=== PATIENT | male | born 1935 | race Caucasian/White ===

== ENCOUNTER 2020-11-04 08:04 | Inpatient (IN) | payer BC, MEDICARE ==
[~2020-11-04] VITALS: Ht 177.8 cm; Wt 52.9 kg
--- NOTE | 2020-11-04 08:35 | PHYS DOC ---
General Adult EDM: Chief Complaint: SHORTNESS OF BREATH HPI: HPI: 85-year-old male past medical history significant for COPD presents the ED with his son with complaints of progressive, worsening shortness of breath. Has known COPD and is not on any home oxygen. His knowledge is also in the past 2 years and both biological daughters providing in-home care. No known history of Covid. Patient complains of left anterior " rib pain," worse with deep respirations for the past 2 weeks. Has been sleeping in his recliner and is very weak/frail, does admit to recently falling and hitting his head but no loss of consciousness. EMR was reviewed - echo 2013 w/HFrEF (45-50%). Review of Systems: Review of Systems: Constitutional: Denies fever or chills. [] Eyes: Denies change in visual acuity. [] HENT: Denies nasal congestion or sore throat. [] Respiratory: Denies cough or shortness of breath. [] Cardiovascular: Denies chest pain or edema. [] GI: Denies abdominal pain, nausea, vomiting, bloody stools or diarrhea. [] : Denies dysuria. [] Musculoskeletal: Denies back pain or joint pain. [] Integument: Denies rash. [] Neurologic: Denies headache, focal weakness or sensory changes. [] Endocrine: Denies polyuria or polydipsia. [] Lymphatic: Denies swollen glands. [] Psychiatric: Denies depression or anxiety. [] Heart Score: C/O Chest Pain: No Risk Factors: Risk Factors: DM, Current or recent (<one month) smoker, HTN, HLP, family history of CAD, obesity. Risk Scores: Score 0 - 3: 2.5% MACE over next 6 weeks - Discharge Home Score 4 - 6: 20.3% MACE over next 6 weeks - Admit for Clinical Observation Score 7 - 10: 72.7% MACE over next 6 weeks - Early Invasive Strategies Allergies: Allergies: Allergies Coded Allergies Type Severity Reaction Last Updated Verified No Known Drug Allergies 12/08/13 No Physical Exam: PE: Constitutional: weak/cachectic appearance-looks like a chronic smoker, afebrile HENT: Normocephalic, atraumatic, Eyes: EOMI, conjunctiva normal, no discharge. Neck: Normal range of motion, supple, no meningismus Cardiovascular: S1/2 present, regular rhythm Lungs & Thorax: Speaking in 2-3 word sentences, no tachypnea, 93% on RA, RN placed on NC, skin skinds between his ribs Abdomen: soft, no tenderness, Skin: Warm, dry, no erythema, no rash. [] Back: No tenderness, no CVA tenderness. [] Extremities: No tenderness, no cyanosis, Neurologic: Alert, no focal deficits noted. [] Psychologic: Affect normal, judgement normal, mood normal-smiling/joking with staff EKG: EKG: Sinus tachycardia 107 bpm, no axis deviation, normal intervals, with PACs, no T wave inversions, no ST elevations or ST depressions Radiology/Procedures: Radiology/Procedures: IMAGING REPORT Signed PATIENT: ELIECER ALMARAZ ACCOUNT: [id number] : 1935 LOCATION: ER AGE: 85 SEX: M EXAM STATUS: REG ER ORD. PHYSICIAN: CLAUDETTE LARIOS DO REASON: SOA, R/O PE PROCEDURE: CT ANGIOGRAPHY CHEST Study: CT CHEST WITH CONTRAST - PULMONARY ANGIOGRAM History: Shortness of air. Pulmonary embolism. Comparison: None available. Technique: Helical CT of the chest performed after the administration of 75 cc Omnipaque 350 intravenous contrast and timed for angiographic evaluation of the pulmonary arteries per PE protocol. Coronal and sagittal 3D MIP reformations were obtained. One or more of the following individualized dose reduction techniques were utilized for this examination: 1. Automated exposure control 2. Adjustment of the mA and/or kV according to patient size 3. Use of iterative reconstruction technique. Findings: Pulmonary Arteries: No main, lobar or segmental pulmonary embolism. Heart/Systemic Vasculature: Multifocal calcific atherosclerosis. No aortic aneurysm or dissection. Mild appearing stenosis at the proximal right renal artery. The visualized great vessels are patent. No interventricular septal deviation to suggest active heart strain. Mediastinum: Several granulomas. No definitive mediastinal or hilar lymph node meeting pathologic criteria based on size measuring under a centimeter short axis. Lungs: Severe emphysema. Opacities at both lung apices in part related to scarring noting that no comparison studies are available to determine stability. No well-circumscribed nodule in the right or left upper lobes, right middle lobe or lingula. Nodular opacity in the posterior right lower lobe with irregular margins is difficult to measure given its lobulated nature but the area of opacification measures approximately 1.9 x 1.7 x 2.0 cm. Small nodular focus medially within the right lower lobe, image 123 series 3 measures 0.3 cm. Multiple nodular opacities in the left lower lobe in addition to ill-defined groundglass and consolidative infiltrates mainly at the subpleural aspect. A nodule in the left lower lobe on image 89 measures 0.9 cm. Left lower lobe nodule on image 109 measures 0.4 cm. Nodular opacity on image 121 measures 2.3 cm transverse and blends in with the subpleural opacification more inferiorly. Mild infiltrates or scarring at the base of the lingula. No pleural effusion. No central airway occlusion but there is debris within the left mainstem bronchus, image 73 series 3. Neck/Axilla/Body Wall: No discrete thyroid nodule. No axillary adenopathy. Cachectic body habitus. Upper Abdomen: A few bilateral renal cystic foci. The spleen is within normal limits for size. Masslike density at the left upper quadrant with a central focus of mineralization, image 169 series 3, may be associated with the left adrenal gland. Portion of this is difficult to differentiate from the posterior wall/undersurface of the gastric fundus. On image 168 series 3 this region measured approximately 4 x 2.5 cm but is very poorly characterized the right adrenal gland is not well seen. Gallstone or stones on image 188 series 3 measuring up to 1.1 cm transverse. Bones: Severe compression deformity at L2 with height loss mainly centrally. Minimal dorsal cortical buckling. Heterogeneous sclerosis of this vertebral body. There is no prevertebral inflammation to suggest that this is acute. Multifocal degenerative changes. Miscellaneous: None. IMPRESSION: 1. No main, lobar or segmental pulmonary embolism. 2. Groundglass and ill-defined airspace opacities at the left lower lobe predominantly subpleural in location. There are several nodular opacities on the left as well. Lobulated nodule in the right lower lobe measuring 1.9 x 1.7 x 2.0 cm. Pneumonia and/or aspiration is suspected at the left lower lobe given the presence of debris within the left mainstem bronchus. Malignancy needs to be excluded particularly for the right lower lobe finding and given severe background emphysema. PET/CT could be performed, tissue sampling of the right lower lobe nodule or follow-up in no more than a month. 3. Severe compression deformity at L2 with heterogeneous sclerosis of this vertebral body. There are no findings to suggest that this is acute. A pathologic compression fracture is not excluded noting that no aggressive osseous lesion is seen elsewhere. Obtainment of any outside imaging studies would be useful to confirm stability. 4. Additional chronic observations detailed in the body the report. Electronically signed by: LINA PANDYA MD (11/04/2020 11:47 AM) [facility] DICTATED and SIGNED BY: LINA PANDYA MD DATE: 11/04/20 [id number] IMAGING REPORT Signed PATIENT: ELIECER ALMARAZ ACCOUNT: [id number] : 1935 LOCATION: ER AGE: 85 SEX: M EXAM STATUS: REG ER ORD. PHYSICIAN: CLAUDETTE LARIOS DO REASON: multiple falls PROCEDURE: CT HEAD AND CERVICAL SPINE WO STUDY: CT head and cervical spine without contrast INDICATION: Falls. COMPARISON: None. TECHNIQUE: Axial CT imaging through the head and cervical spine without the use of intravenous contrast. Sagittal and coronal reformats were obtained. One or more of the following individualized dose reduction techniques were uti lized for this examination: 1. Automated exposure control 2. Adjustment of the mA and/or kV according to patient size 3. Use of iterative reconstruction technique. FINDINGS: CT head: No acute intracranial hemorrhage. No midline shift. Marie-white matter differentiation is maintained. Parenchymal volume loss with ex vacuo ventriculomegaly. White matter findings most frequently on account of chronic microvascular ischemic change. Intracranial calcific atherosclerosis. No depressed calvarial fracture. No hemorrhage within the paranasal sinuses. Normally aerated mastoid air cells. CT cervical spine: Taking into consideration osteopenia, no acute fracture. No traumatic malalignment. Multilevel, multifactorial spondylosis with central canal narrowing estimated at up to moderate and greatest at C3-C4. Increased density along the dorsal epidural space at C2-C3 and C3-C4 favored on account of ligamentum flavum hypertrophy. Multilevel neural foraminal narrowing which is severe at a few levels. No prevertebral or dorsal paraspinous hematoma. No thyroid nodule. Scattered venous gas to be iatrogenic from venipuncture. Lung findings detailed separately. IMPRESSION: CT head: 1. No acute intracranial abnormality by CT. 2. Chronic/senescent observations outlined in the body the report. CT cervical spine: 1. Taking into consideration osteopenia no acute fracture seen throughout the cervical spine. No traumatic malalignment. 2. 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 The central canal is not fully characterized but narrowing is estimated at up to moderate and favored greatest at C3-C4. Electronically signed by: LINA PANDYA MD (11/04/2020 11:25 AM) [facility] DICTATED and SIGNED BY: LINA PANDYA MD DATE: 11/04/20 [id number] IMAGING REPORT Signed PATIENT: ELIECER ALMARAZ ACCOUNT: [id number] : 1935 LOCATION: ER AGE: 85 SEX: M EXAM STATUS: REG ER ORD. PHYSICIAN: CLAUDETTE LARIOS DO REASON: soa PROCEDURE: PORTABLE CHEST 1V XR CHEST 1V INDICATION: soa COMPARISON STUDY: None. FINDINGS: Lungs: Hyperexpanded lung volume. Patchy bilateral opacities. Biapical subpleural fibrosis. Pleura: No pleural effusion or pneumothorax. Heart and Mediastinum: The cardiomediastinal silhouette is normal. Atherosclerosis of the thoracic aorta. IMPRESSION: Patchy bilateral opacities, which could represent edema or multifocal infection. Small left pleural effusion. Electronically signed by: Norm Small MD (11/04/2020 9:02 AM) [id number] DICTATED and SIGNED BY: NORM SMALL MD DATE: 11/04/20 [id number] 0 Course & Med Decision Making: Course & Med Decision Making Pertinent Labs and Imaging studies reviewed. (See chart for details) COVID-19 CRITERIA: The patient was evaluated during the global COVID-19 pandemic, and that diagnosis was suspected/considered upon their initial presentation. Their evaluation, treatment and testing was consistent with current guidelines for patients who present with complaints or symptoms that may be related to COVID-19. Presents to the ED with complaints of shortness of breath in an elderly male, requiring NC/oxygen, meets sepsis criteria with concerns for multifocal pneumonia, groundglass opacities (covid pending), cannot exclude malignancy vs CHF. Will admit for further medical management. Patient stable to admission an d agrees with this plan. I have spoken with the patient and/or caregivers. I have explained the patient's condition, diagnosis and treatment plan based on the information available to me at this time. I have answered the patient's and/or caregivers questions and answered any concerns. The patient and/or caregivers have as good an understanding of the patient's diagnosis, condition and treatment plan as can be expected at this point. The patient has been stabilized within the capability of the emergency department. The patient will be transported for further care and management or will be moved to an observation or inpatient [facility]. I have communicated with the staff or medical practitioner taking over this patient's care. Chris Disclaimer: Chris Disclaimer: This electronic medical record was generated, in whole or in part, using a voice recognition dictation system. Departure Departure Impression: Primary Impression: Sepsis Additional Impressions: Multifocal pneumonia Person under investigation for COVID-19 Acute dyspnea Disposition: ADMITTED INPATIENT Admitting Physician: LUIS (Dr. Lomeli) Condition: GUARDED Referrals: ALEXANDRE NGO MD (PCP) CLAUDETTE LARIOS DO November 04, 2020 08:35
[2020-11-04] MEDS ORDERED: IV NORMAL SALINE 1000ML BAG 1,000 ML IV ONE (08:45)
[2020-11-04 08:53] LABS: BASO % 0 % (0-3); EOS % 0 % (0-3); HEMATOCRIT 45.4 % (39.0-53.0); HEMOGLOBIN 15.2 g/dL (13.0-17.5); LYMPH # 0.6 x10^3/uL (1.0-4.8); LYMPH % 3 % (24-48); MEAN CORPUSCULAR HEMOGLOBIN 31 pg (25-35); MEAN CORPUSCULAR HGB CONC 33 g/dL (31-37); MEAN CORPUSCULAR VOLUME 94 fL (79-100); MONO # 1.1 x10^3/uL (0.0-1.1); MONO % 6 % (0-9); NEUT # 16.9 x10^3/uL (1.8-7.7); NEUT % 91 % (31-73); PLATELET COUNT 229 x10^3/uL (140-400); RED BLOOD COUNT 4.84 x10^6/uL (4.30-5.70); RED CELL DISTRIBUTION WIDTH 15.2 % (11.5-14.5); WHITE BLOOD COUNT 18.6 x10^3/uL (4.0-11.0)
--- NOTE | 2020-11-04 09:05 | RAD ---
XR CHEST 1V INDICATION: soa COMPARISON STUDY: None. FINDINGS: Lungs: Hyperexpanded lung volume. Patchy bilateral opacities. Biapical subpleural fibrosis. Pleura: No pleural effusion or pneumothorax. Heart and Mediastinum: The cardiomediastinal silhouette is normal. Atherosclerosis of the thoracic ao rta. IMPRESSION: Patchy bilateral opacities, which could represent edema or multifocal infection. Small left pleural effusion. Electronically signed by: Bill Small MD (11/04/2020 9:02 AM) [id number]
[2020-11-04 09:09] LABS: CALCIUM 9.4 mg/dL (8.5-10.1); CREATININE 1.2 mg/dL (0.7-1.3); GFR 57.5; POTASSIUM 4.4 mmol/L (3.5-5.1)
[2020-11-04 09:21] LABS: ALBUMIN 3.3 g/dL (3.4-5.0); DIRECT BILIRUBIN 0.4 mg/dL (0.0-0.2); TOTAL BILIRUBIN 1.8 mg/dL (0.2-1.0); TOTAL PROTEIN 7.2 g/dL (6.4-8.2)
[2020-11-04] MEDS ORDERED: PIP/TAZO PER PHARMACY MC PRN (09:30)
[2020-11-04] MEDS ORDERED: PIPERACILLIN/TAZOBACTAM 3.375 GM in IV NORMAL SALINE 50ML 50 ML IV ONE (10:00)
[2020-11-04] MEDS ORDERED: VANCOMYCIN 1.5 GM in IV NORMAL SALINE 500ML BAG 500 ML IV ONE (10:00)
--- NOTE | 2020-11-04 10:07 | EKG ---
[facility] [address] [place] [address] Test Date: 2020-11-04 Test Time: 08:29:55 Pat Name: ELIECER ALMARAZ Department: Room: Gender: M Manager Of Manufacturing: : 1935 Requested By: CLAUDETTE LARIOS Order Number: [id number] Reading MD: Mahendra Mendoza Measurements Intervals [place] Rate: 107 P: 73 AK: 116 QRS: 33 QRSD: 100 T: 51 QT: 314 QTc: 424 Interpretive Statements SINUS TACHYCARDIA ATRIAL PREMATURE COMPLEX(ES) LOW LIMB LEAD VOLTAGE Electronically Signed On 11-06-2020 15:26:25 CDT by Mahendra Mendoza
[2020-11-04] MEDS ORDERED: CONTRAST GIVEN. MC PRN (10:45)
[2020-11-04] MEDS ORDERED: IOHEXOL 350 MG/ML 100 ML VIAL. IV ONE (10:45)
[2020-11-04 11:09] LABS: % BANDS 2 % (0-9); % BASOS 1 % (0-3); % LYMPHS 5 % (24-48); % MONOS 3 % (0-10); % SEGS 89 % (35-66)
[2020-11-04 11:10] LABS: PLT ESTIMATE ADEQUATE (ADEQUATE)
--- NOTE | 2020-11-04 11:27 | RAD ---
STUDY: CT head and cervical spine without contrast INDICATION: Falls. COMPARISON: None. TECHNIQUE: Axial CT imaging through the head and cervical spine without the use of intravenous contra st. Sagittal and coronal reformats were obtained. One or more of the following individualized dose reduction techniques were utilized for this examinat ion: 1. Automated exposure control 2. Adjustment of the mA and/or kV according to patient size 3. Use of iterative reconstruction technique. FINDINGS: CT head: No acute intracranial hemorrhage. No midline shift. Marie-white matter differentiation is maintained. Parenchymal volume loss with ex vacuo ventriculomegaly. White matter findings most frequently on acco unt of chronic microvascular ischemic change. Intracranial calcific atherosclerosis. No depressed calvarial fracture. No hemorrhage within the paranasal sinuses. Normally aerated mastoid air cells. CT cervical spine: Taking into consideration osteopenia, no acute fracture. No traumatic malalignment. Multilevel, multifactorial spondylosis with central canal narrowing estimated at up to moderate and g reatest at C3-C4. Increased density along the dorsal epidural space at C2-C3 and C3-C4 favored on acc ount of ligamentum flavum hypertrophy. Multilevel neural foraminal narrowing which is severe at a few levels. No prevertebral or dorsal paraspinous hematoma. No thyroid nodule. Scattered venous gas to be iatroge jordan from venipuncture. Lung findings detailed separately. IMPRESSION: CT head: 1. No acute intracranial abnormality by CT. 2. Chronic/senescent observations outlined in the body the report. CT cervical spine: 1. Taking into consideration osteopenia no acute fracture seen throughout the cervical spine. No tra umatic malalignment. 2. 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 The central canal is not fully characterized but narrowing is estimated at up to moderate and favored greatest at C3-C4. Electronically signed by: LINA PANDYA MD (11/04/2020 11:25 AM) [facility]
--- NOTE | 2020-11-04 11:49 | RAD ---
Study: CT CHEST WITH CONTRAST - PULMONARY ANGIOGRAM History: Shortness of air. Pulmonary embolism. Comparison: None available. Technique: Helical CT of the chest performed after the administration of 75 cc Omnipaque 350 intrave nous contrast and timed for angiographic evaluation of the pulmonary arteries per PE protocol. Pérez l and sagittal 3D MIP reformations were obtained. One or more of the following individualized dose reduction techniques were utilized for this examinat ion: 1. Automated exposure control 2. Adjustment of the mA and/or kV according to patient size 3. Use of iterative reconstruction technique. Findings: Pulmonary Arteries: No main, lobar or segmental pulmonary embolism. Heart/Systemic Vasculature: Multifocal calcific atherosclerosis. No aortic aneurysm or dissection. Mi ld appearing stenosis at the proximal right renal artery. The visualized great vessels are patent. No interventricular septal deviation to suggest active heart strain. Mediastinum: Several granulomas. No definitive mediastinal or hilar lymph node meeting pathologic cri teria based on size measuring under a centimeter short axis. Lungs: Severe emphysema. Opacities at both lung apices in part related to scarring noting that no com parison studies are available to determine stability. No well-circumscribed nodule in the right or le ft upper lobes, right middle lobe or lingula. Nodular opacity in the posterior right lower lobe with irregular margins is difficult to measure given its lobulated nature but the area of opacification me asures approximately 1.9 x 1.7 x 2.0 cm. Small nodular focus medially within the right lower lobe, im age 123 series 3 measures 0.3 cm. Multiple nodular opacities in the left lower lobe in addition to il l-defined groundglass and consolidative infiltrates mainly at the subpleural aspect. A nodule in the left lower lobe on image 89 measures 0.9 cm. Left lower lobe nodule on image 109 measures 0.4 cm. Nod ular opacity on image 121 measures 2.3 cm transverse and blends in with the subpleural opacification more inferiorly. Mild infiltrates or scarring at the base of the lingula. No pleural effusion. No asha tral airway occlusion but there is debris within the left mainstem bronchus, image 73 series 3. Neck/Axilla/Body Wall: No discrete thyroid nodule. No axillary adenopathy. Cachectic body habitus. Upper Abdomen: A few bilateral renal cystic foci. The spleen is within normal limits for size. [place] ke density at the left upper quadrant with a central focus of mineralization, image 169 series 3, may be associated with the left adrenal gland. Portion of this is difficult to differentiate from the po sterior wall/undersurface of the gastric fundus. On image 168 series 3 this region measured approxima tely 4 x 2.5 cm but is very poorly characterized the right adrenal gland is not well seen. Gallstone or stones on image 188 series 3 measuring up to 1.1 cm transverse. Bones: Severe compression deformity at L2 with height loss mainly centrally. Minimal dorsal cortical buckling. Heterogeneous sclerosis of this vertebral body. There is no prevertebral inflammation to fuentes ggest that this is acute. Multifocal degenerative changes. Miscellaneous: None. IMPRESSION: 1. No main, lobar or segmental pulmonary embolism. 2. Groundglass and ill-defined airspace opacities at the left lower lobe predominantly subpleural in location. There are several nodular opacities on the left as well. Lobulated nodule in the right low er lobe measuring 1.9 x 1.7 x 2.0 cm. Pneumonia and/or aspiration is suspected at the left lower lobe given the presence of debris within the left mainstem bronchus. Malignancy needs to be excluded part icularly for the right lower lobe finding and given severe background emphysema. PET/CT could be perf ormed, tissue sampling of the right lower lobe nodule or follow-up in no more than a month. 3. Severe compression deformity at L2 with heterogeneous sclerosis of this vertebral body. There are no findings to suggest that this is acute. A pathologic compression fracture is not excluded noting that no aggressive osseous lesion is seen elsewhere. Obtainment of any outside imaging studies would be useful to confirm stability. 4. Additional chronic observations detailed in the body the report. Electronically signed by: LINA PANDYA MD (11/04/2020 11:47 AM) [facility]
--- NOTE | 2020-11-04 12:10 | PDOC1 ---
History and Physical Date of Admission Date of Admission DATE: 11/04/20 TIME: 12:05 Identification/Chief Complaint Chief Complaint Shortness of breath Source Source: Patient History of Present Illness History of Present Illness Mr Stone is an 85yo M w/ no significant medical history, but smoker for 77 years who comes from home who is mostly homebound complain of worsening shortness of breath. He has been having some back pain recently and taking pain medications. He only interacts with his children who are all vaccinated against COVID 19, though he is not. He did fall 2 months ago, then again 2 days ago, has been having right rib pain as well as lower back pain. On examination dyspneic respiratory rate greater than 20-minute and O2 saturatio ns initially noted to 84% on room air improved with 2 L nasal cannula oxygen to 91%. EKG sinus tachycardia rate of 107 beats a minute incomplete right bundle branch block no T wave abnormalities or ST segment abnormalities. Chest radiograph hyperexpanded lungs bilateral patchy opacities. CTPA with concerning right-sided lower lobe nodule and bilateral groundglass opacities as well as debris in left mainstem bronchus and L2 compression deformity. Head neck CT with no acute abnormality. During my examination rapid NAAT returned positive for COVID 19. Admitted for further care Past Medical History Musculoskeletal: low back pain Past Surgical History Past Surgical History: Tonsillectomy Family History Family History Reviewed Family History: Family History Unknown Social History Smoke: 1 pack per day ALCOHOL: none Drugs: None Current Problem List Problem List Problems Medical Problems: (1) Acute dyspnea Status: Acute (2) Multifocal pneumonia Status: Acute (3) Person under investigation for COVID-19 Status: Acute (4) Sepsis Status: Acute Current Medications Current Medications Current Medications Sodium Chloride 1,000 ml @ 1,000 mls/hr 1X ONCE IV Last administered on 11/04/20at 09:06; Start 11/04/20 at 08:45; Stop 11/04/20 at 09:44; Status DC Piperacillin Sod/ Tazobactam Sod (Zosyn Per Pharmacy) 1 each PRN DAILY PRN [facility] SEE COMMENTS; Start 11/04/20 at 09:30; Status UNV Vancomycin HCl (Vanco Per Pharmacy) 1 each PRN DAILY PRN MC SEE COMMENTS; Start 11/04/20 at 09:30; Status UNV Vancomycin HCl 1.5 gm/Sodium Chloride 500 ml @ 250 mls/hr 1X ONCE IV Last administered on 11/04/20at 10:05; Start 11/04/20 at 10:00; Stop 11/04/20 at 11:59; Status DC Piperacillin Sod/ Tazobactam Sod 3.375 gm/Sodium Chloride 50 ml @ 100 mls/hr 1X ONCE IV Last administered on 11/04/20at 10:04; Start 11/04/20 at 10:00; Stop 11/04/20 at 10:29; Status DC Iohexol (Omnipaque 350 Mg/ml) 75 ml 1X ONCE IV Last administered on 11/04/20at 11:07; Start 11/04/20 at 10:45; Stop 11/04/20 at 10:46; Status DC Info (CONTRAST GIVEN -- Rx MONITORING) 1 each PRN DAILY PRN MC SEE COMMENTS; Start 11/04/20 at 10:45; Stop 11/06/20 at 10:44 Allergies Allergies: Coded Allergies: No Known Drug Allergies (Unverified , 12/08/13) ROS General: YES: Fatigue, Malaise, Appetite; No: Chills, Night Sweats, Other PSYCHOLOGICAL ROS: No: Anxiety, Behavioral Disorder, Concentration difficultie, Decreased libido, Depression, Disorientation, Hallucinations, Hostility, Irritablity, Memory difficulties, Mood Swings, Obsessive thoughts, Physical abuse, Sexual abuse, Sleep disturbances, Suicidal ideation, Other Eyes: No Blurry vision, No Decreased vision, No Double vision, No Dry eyes, No Excessive tearing, No Eye Pain, No Itchy Eyes, No Loss of vision, No Photophobia, No Scotomata, No Uses contacts, No Uses glasses, No Other HEENT: No: Heacaches, Visual Changes, Hearing change, Nasal congestion, Nasal discharge, Oral lesions, Sinus pain, Sore Throat, Epistaxis, Sneezing, Snoring, Tinnitus, Vertigo, Vocal changes, Other ALLERGY AND IMMUNOLOGY: No: Hives, Insect Bite Sensitivity, Itchy/Watery Eyes, Nasal Congestion, Post Nasal Drip, Seasonal Allergies, Other Hematological and Lymphatic: No: Bleeding Problems, Blood Clots, Blood Branch sfusions, Brusing, Night Sweats, Pallor, Swollen Lymph Nodes, Other ENDOCRINE: No: Breast Changes, Galactorrhea, Hair Pattern Changes, Hot Flashes, Malaise/lethargy, Mood Swings, Palpitations, Polydipsia/polyuria, Skin Changes, Temperature Intolerance, Unexpected Weight Changes, Other Breast: No New/Changing Breast Lumps, No Nipple changes, No Nipple discharge, No Other Respiratory: YES: Cough, Shortness of breath, SOB with excertion, Tachypnea; No: Hemoptysis, Orthopnea, Pleuritic Pain, Sputum Changes, Stridor, Wheezing, Other Cardiovascular: No Chest Pain, No Palpitations, No Orthopnea, No Paroxysmal Noc. Dyspnea, No Edema, No Lt Headedness, No Other Gastrointestinal: No Nausea, No Vomiting, No Abdominal Pain, No Diarrhea, No Constipation, No Melena, No Hematochezia, No Other Genitourinary: No Dysuria, No Frequency, No Incontinence, No Hematuria, No Retention, No Discharge, No Urgency, No Pain, No Flank Pain, No Other, No , No , No , No , No , No , No Musculoskeletal: No Gait Disturbance, No Joint Pain, No Joint Stiffness, No Joint Swelling, No Muscle Pain, No Muscular Weakness, No Pain In:, No Swelling In:, No Other Neurological: No Behavorial Changes, No Bowel/Bladder ControlChng, No Confusion, No Dizziness, No Gait Disturbance, No Headaches, No Impaired Coord/balance, No Memory Loss, No Numbness/Tingling, No Seizures, No Speech Problems, No Tremors, No Visual Changes, No Weakness, No Other Skin: No Dry Skin, No Eczema, No Hair Changes, No Lumps, No Mole Changes, No Mottling, No Nail Changes, No Pruritus, No Rash, No Skin Lesion Changes, No Other, No Acne Physical Exam General: Alert, Oriented X3, Cooperative, mild distress, Other (Cachectic appearing) HEENT: Atraumatic, PERRLA, EOMI, Mucous membr. moist/pink Lungs: Other (Bilateral rhonchi and crackles) Heart: S1S2, RRR, no thrills, no rubs, no gallops, no murmurs Abdomen: Normal bowel sounds, Soft, No tenderness, No hepatosplenomegaly, No masses Rectal Exam: not examined Extremities: No clubbing, No cyanosis, No edema, Normal pulses, No tenderness/swelling Skin: No rashes, No breakdown, No significant lesion Neuro: Normal gait, Normal speech, Strength at 5/5 X4 ext, Normal tone, Sensation intact, Cranial nerves 3-12 NL, Reflexes 2+ Psych/Mental Status: Mental status NL, Mood NL Vitals Vitals Vital Signs Date Time Temp Pulse Resp B/P (MAP) Pulse Ox O2 Delivery O2 Flow Rate FiO2 11/04/20 10:14 98.7 106 14 123/59 (80) 95 Nasal Cannula 2.0 98.7 Labs Labs Laboratory Tests Test 11/04/20 08:35 11/04/20 09:58 White Blood Count 18.6 x10^3/uL (4.0-11.0) Red Blood Count 4.84 x10^6/uL (4.30-5.70) Hemoglobin 15.2 g/dL (13.0-17.5) Hematocrit 45.4 % (39.0-53.0) Mean Corpuscular Volume 94 fL (79-100) Mean Corpuscular Hemoglobin 31 pg (25-35) Mean Corpuscular Hemoglobin Concent 33 g/dL (31-37) Red Cell Distribution Width 15.2 % (11.5-14.5) Platelet Count 229 x10^3/uL (140-400) Neutrophils (%) (Auto) 91 % (31-73) Lymphocytes (%) (Auto) 3 % (24-48) Monocytes (%) (Auto) 6 % (0-9) Eosinophils (%) (Auto) 0 % (0-3) Basophils (%) (Auto) 0 % (0-3) Neutrophils # (Auto) 16.9 x10^3/uL (1.8-7.7) Lymphocytes # (Auto) 0.6 x10^3/uL (1.0-4.8) Monocytes # (Auto) 1.1 x10^3/uL (0.0-1.1) Eosinophils # (Auto) 0.0 x10^3/uL (0.0-0.7) Basophils # (Auto) 0.0 x10^3/uL (0.0-0.2) Segmented Neutrophils % 89 % (35-66) Band Neutrophils % 2 % (0-9) Lymphocytes % 5 % (24-48) Monocytes % 3 % (0-10) Basophils % 1 % (0-3) Platelet Estimate Adequate (ADEQUATE) Large Platelets Few Sodium Level 142 mmol/L (136-145) Potassium Level 4.4 mmol/L (3.5-5.1) Chloride Level 102 mmol/L (98-107) Carbon Dioxide Level 34 mmol/L (21-32) Anion Gap 6 (6-14) Blood Urea Nitrogen 48 mg/dL (8-26) Creatinine 1.2 mg/dL (0.7-1.3) Estimated GFR (Cockcroft-Gault) 57.5 Glucose Level 93 mg/dL (70-99) Lactic Acid Level 1.3 mmol/L (0.4-2.0) Calcium Level 9.4 mg/dL (8.5-10.1) Total Bilirubin 1.8 mg/dL (0.2-1.0) Direct Bilirubin 0.4 mg/dL (0.0-0.2) Aspartate Amino Transf (AST/SGOT) 15 U/L (15-37) Alanine Aminotransferase (ALT/SGPT) 20 U/L (16-63) Alkaline Phosphatase 82 U/L (46-116) Creatine Kinase 65 U/L (39-308) Troponin I Quantitative < 0.017 ng/mL (0.000-0.055) HT-Iau-K-Type Natriuretic Peptide 467 pg/mL (0-449) Total Protein 7.2 g/dL (6.4-8.2) Albumin 3.3 g/dL (3.4-5.0) SARS-CoV-2 Antigen (Rapid) Negative (NEGATIVE) Laboratory Tests Test 11/04/20 08:35 11/04/20 09:58 White Blood Count 18.6 x10^3/uL (4.0-11.0) Red Blood Count 4.84 x10^6/uL (4.30-5.70) Hemoglobin 15.2 g/dL (13.0-17.5) Hematocrit 45.4 % (39.0-53.0) Mean Corpuscular Volume 94 fL (79-100) Mean Corpuscular Hemoglobin 31 pg (25-35) Mean Corpuscular Hemoglobin Concent 33 g/dL (31-37) Red Cell Distribution Width 15.2 % (11.5-14.5) Platelet Count 229 x10^3/uL (140-400) Neutrophils (%) (Auto) 91 % (31-73) Lymphocytes (%) (Auto) 3 % (24-48) Monocytes (%) (Auto) 6 % (0-9) Eosinophils (%) (Auto) 0 % (0-3) Basophils (%) (Auto) 0 % (0-3) Neutrophils # (Auto) 16.9 x10^3/uL (1.8-7.7) Lymphocytes # (Auto) 0.6 x10^3/uL (1.0-4.8) Monocytes # (Auto) 1.1 x10^3/uL (0.0-1.1) Eosinophils # (Auto) 0.0 x10^3/uL (0.0-0.7) Basophils # (Auto) 0.0 x10^3/uL (0.0-0.2) Segmented Neutrophils % 89 % (35-66) Band Neutrophils % 2 % (0-9) Lymphocytes % 5 % (24-48) Monocytes % 3 % (0-10) Basophils % 1 % (0-3) Platelet Estimate Adequate (ADEQUATE) Large Platelets Few Sodium Level 142 mmol/L (136-145) Potassium Level 4.4 mmol/L (3.5-5.1) Chloride Level 102 mmol/L (98-107) Carbon Dioxide Level 34 mmol/L (21-32) Anion Gap 6 (6-14) Blood Urea Nitrogen 48 mg/dL (8-26) Creatinine 1.2 mg/dL (0.7-1.3) Estimated GFR (Cockcroft-Gault) 57.5 Glucose Level 93 mg/dL (70-99) Lactic Acid Level 1.3 mmol/L (0.4-2.0) Calcium Level 9.4 mg/dL (8.5-10.1) Total Bilirubin 1.8 mg/dL (0.2-1.0) Direct Bilirubin 0.4 mg/dL (0.0-0.2) Aspartate Amino Transf (AST/SGOT) 15 U/L (15-37) Alanine Aminotransferase (ALT/SGPT) 20 U/L (16-63) Alkaline Phosphatase 82 U/L (46-116) Creatine Kinase 65 U/L (39-308) Troponin I Quantitative < 0.017 ng/mL (0.000-0.055) HE-Jcl-U-Type Natriuretic Peptide 467 pg/mL (0-449) Total Protein 7.2 g/dL (6.4-8.2) Albumin 3.3 g/dL (3.4-5.0) SARS-CoV-2 Antigen (Rapid) Negative (NEGATIVE) Images Images Chest radiograph: Lungs: Hyperexpanded lung volume. Patchy bilateral opacities. Biapical subpleural fibrosis. Pleura: No pleural effusion or pneumothorax. Heart and Mediastinum: The cardiomediastinal silhouette is normal. Atherosclerosis of the thoracic aorta. IMPRESSION: Patchy bilateral opacities, which could represent edema or multifocal infection. Small left pleural effusion. CTPA: Pulmonary Arteries: No main, lobar or segmental pulmonary embolism. Heart/Systemic Vasculature: Multifocal calcific atherosclerosis. No aortic aneurysm or dissection. Mild appearing stenosis at the proximal right renal artery. The visualized great vessels are patent. No interventricular septal d eviation to suggest active heart strain. Mediastinum: Several granulomas. No definitive mediastinal or hilar lymph node meeting pathologic criteria based on size measuring under a centimeter short axis. Lungs: Severe emphysema. Opacities at both lung apices in part related to scarring noting that no comparison studies are available to determine stability. No well-circumscribed nodule in the right or left upper lobes, right middle lobe or lingula. Nodular opacity in the posterior right lower lobe with irregular margins is difficult to measure given its lobulated nature but the area of opacification measures approximately 1.9 x 1.7 x 2.0 cm. Small nodular focus medially within the right lower lobe, image 123 series 3 measures 0.3 cm. Multiple nodular opacities in the left lower lobe in addition to ill-defined groundglass and consolidative infiltrates mainly at the subpleural aspect. A nodule in the left lower lobe on image 89 measures 0.9 cm. Left lower lobe nodule on image 109 measures 0.4 cm. Nodular opacity on image 121 measures 2.3 cm transverse and blends in with the subpleural opacification more inferiorly. Mild infiltrates or scarring at the base of the lingula. No pleural effusion. No central airway occlusion but there is debris within the left mainstem bronchus, image 73 series 3. Neck/Axilla/Body Wall: No discrete thyroid nodule. No axillary adenopathy. Cachectic body habitus. Upper Abdomen: A few bilateral renal cystic foci. The spleen is within normal limits for size. Masslike density at the left upper quadrant with a central focus of mineralization, image 169 series 3, may be associated with the left adrenal gland. Portion of this is difficult to differentiate from the posterior wall/undersurface of the gastric fundus. On image 168 series 3 this region measured approximately 4 x 2.5 cm but is very poorly characterized the right adrenal gland is not well seen. Gallstone or stones on image 188 series 3 measuring up to 1.1 cm transverse. Bones: Severe compression deformity at L2 with height loss mainly centrally. Minimal dorsal cortical buckling. Heterogeneous sclerosis of this vertebral body. There is no prevertebral inflammation to suggest that this is acute. Multifocal degenerative changes. Miscellaneous: None. IMPRESSION: 1. No main, lobar or segmental pulmonary embolism. 2. Groundglass and ill-defined airspace opacities at the left lower lobe predominantly subpleural in location. There are several nodular opacities on the left as well. Lobulated nodule in the right lower lobe measuring 1.9 x 1.7 x 2.0 cm. Pneumonia and/or aspiration is suspected at the left lower lobe given the presence of debris within the left mainstem bronchus. Malignancy needs to be excluded particularly for the right lower lobe finding and given severe background emphysema. PET/CT could be performed, tissue sampling of the right lower lobe nodule or follow-up in no more than a month. 3. Severe compression deformity at L2 with heterogeneous sclerosis of this vertebral body. There are no findings to suggest that this is acute. A pathologic compression fracture is not excluded noting that no aggressive osseous lesion is seen elsewhere. Obtainment of any outside imaging studies would be useful to confirm stability. 4. Additional chronic observations detailed in the body the report. CT head/C-spine: CT head: No acute intracranial hemorrhage. No midline shift. Marie-white matter different iation is maintained. Parenchymal volume loss with ex vacuo ventriculomegaly. White matter findings most frequently on account of chronic microvascular ischemic change. Intracranial calcific atherosclerosis. No depressed calvarial fracture. No hemorrhage within the paranasal sinuses. Normally aerated mastoid air cells. CT cervical spine: Taking into consideration osteopenia, no acute fracture. No traumatic malalignment. Multilevel, multifactorial spondylosis with central canal narrowing estimated at up to moderate and greatest at C3-C4. Increased density along the dorsal epidural space at C2-C3 and C3-C4 favored on account of ligamentum flavum hypertrophy. Multilevel neural foraminal narrowing which is severe at a few levels. No prevertebral or dorsal paraspinous hematoma. No thyroid nodule. Scattered venous gas to be iatrogenic from venipuncture. Lung findings detailed separately. IMPRESSION: CT head: 1. No acute intracranial abnormality by CT. 2. Chronic/senescent observations outlined in the body the report. CT cervical spine: 1. Taking into consideration osteopenia no acute fracture seen throughout the cervical spine. No traumatic malalignment. 2. 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 The central canal is not fully characterized but narrowing is estimated at up to moderate and favored greatest at C3-C4. VTE Prophylaxis Ordered VTE Prophylaxis Devices: No VTE Pharmacological Prophylaxi: Yes Assessment/Plan Assessment/Plan A/P: Acute respiratory failure with hypoxia - due to COVID 19 pneumonia and bilateral pneumonia with pulmonary mass. Sepsis - IVF + antibiotics, though this is COVID 19 related. Back painL2 compression fracture - seems to be chronic, but with recent falls this could be wrong. Will place lidoderm patch, prn tramadol, morphine. Fell 2 days ago and a few months ago. 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 Will consult pulm, will definitely need f/u outpatient Smoker - counseled on cessation FEN - General diet PPX - lovenox CODE - DNR/DNI Dispo - Inpatient for COVID 19 treatment Justifications for Admission Other Justification KIMBERLY RUELAS MD November 04, 2020 12:10
[2020-11-04] MEDS ORDERED: guaiFENesin DM 200MG/20MG 10 ML SYRUP PO PRN (13:30)
[2020-11-04] MEDS ORDERED: ONDANSETRON PF 4 MG/2 ML VIAL. IVP PRN (13:30)
[2020-11-04] MEDS ORDERED: ACETAMINOPHEN 325 MG TABLET. PO PRN (13:30)
[2020-11-04] MEDS ORDERED: MORPHINE SULFATE 2 MG/ML VIAL. IV PRN (14:00)
[2020-11-04] MEDS: AMINO AC 3%/ELECTROLYTE/GLYCER 1,000 ML IV SCH (14:55)
[2020-11-04 15:00] VITALS: BP 109/69
[2020-11-04] MEDS ORDERED: REMDESIVIR LOAD in IV NORMAL SALINE 250ML TV IV ONE (15:00)
[2020-11-04] MEDS ORDERED: SODIUM CHL/ALOE VERA NASAL GEL 14.1GM TUBE. NS PRN (15:45)
[2020-11-04] MEDS: VANCOMYCIN PER PHARMACY MC PRN (16:30)
--- NOTE | 2020-11-04 16:31 | NUR ---
Pharmacy Vancomycin Dosing Note S:Consulted to monitor and dose vancomycin started 11/04/20. O:ELIECER ALMARAZ is a 85 year old M with Pneumonia . Height: 5 feet, 10 inches Weight: 65.9 kg [place] Body Weight: 73.00 Adjusted Body Weight: 70.16 Dosing Weight: Actual Other Antibiotics: ZOSYN LABS: Last BUN: 48 Last Creatinine: 1.2 Creatinine Clearance: 42 mL/min Last WBC: 18.6 Last Procalcitonin: Tmax (past 24 hours): Microbiology: I/O: Drug Levels: Last level: on at Last dose given at Vancomycin Dosing: Loading Dose: 1500 mg x1 Dosing Weight: Actual Target Trough: 10-20 A: Based on: HT, WT AND RENAL FXN P: 1. Begin Vancomycin 1000 mg IV q24h 2. Follow up Trough level on 11/06/20 at 0930 3. Pharmacy will continue to monitor, follow and adjust therapy as needed. EMILY CARTWRIGHT, [facility], 11/04/20 [id number]
[2020-11-04] MEDS: FLUTICASONE 50MCG/NASAL SPRAY 16GM BOTTLE. NS SCH (18:11)
[2020-11-04] MEDS: DEXAMETHASONE SOD PHOS 4 MG/ML VIAL IVP SCH (18:12)
[2020-11-04] MEDS: THIAMINE 100 MG TABLET. PO SCH (18:12)
[2020-11-04] MEDS: ENOXAPARIN 40 MG/0.4 ML SYRINGE. SQ SCH (18:12)
[2020-11-04] MEDS: PIPERACILLIN/TAZOBACTAM 3.375 GM in IV NORMAL SALINE 50ML 50 ML IV SCH (18:13)
[2020-11-04] MEDS: LIDOCAINE (700MG/PATCH) PATCH. TD SCH (18:13)
[2020-11-04] MEDS: ZINC SULFATE 220 MG CAPSULE. PO SCH (18:14)
[2020-11-04 19:00] VITALS: BP 98/47
[2020-11-04] MEDS: MIRTAZAPINE 7.5 MG TABLET. PO SCH (20:46)
[2020-11-04] MEDS: PATCH REMOVAL. MC SCH (21:00)
[2020-11-04 22:41] VITALS: BP 100/51
[2020-11-05 02:33] VITALS: BP 90/46
[2020-11-05] MEDS: AMINO AC 3%/ELECTROLYTE/GLYCER 1,000 ML IV SCH ×2 (02:38→15:29)
[2020-11-05] MEDS: PIPERACILLIN/TAZOBACTAM 3.375 GM in IV NORMAL SALINE 50ML 50 ML IV SCH ×5 (02:38→23:53)
[2020-11-05 07:00] VITALS: BP 108/54
[2020-11-05] MEDS: LIDOCAINE (700MG/PATCH) PATCH. TD SCH (09:00)
[2020-11-05] MEDS: THIAMINE 100 MG TABLET. PO SCH (09:02)
[2020-11-05] MEDS: DEXAMETHASONE SOD PHOS 4 MG/ML VIAL IVP SCH (09:02)
[2020-11-05] MEDS: ZINC SULFATE 220 MG CAPSULE. PO SCH (09:02)
[2020-11-05] MEDS: FLUTICASONE 50MCG/NASAL SPRAY 16GM BOTTLE. NS SCH (09:09)
[2020-11-05] MEDS: VANCOMYCIN 1 GM in IV NORMAL SALINE 250ML 250 ML IV SCH (10:28)
[2020-11-05 11:00] VITALS: BP 98/47
[2020-11-05 13:07] LABS: BASO % 0 % (0-3); EOS % 0 % (0-3); HEMATOCRIT 40.2 % (39.0-53.0); HEMOGLOBIN 13.4 g/dL (13.0-17.5); LYMPH # 0.2 x10^3/uL (1.0-4.8); LYMPH % 2 % (24-48); MEAN CORPUSCULAR HEMOGLOBIN 31 pg (25-35); MEAN CORPUSCULAR HGB CONC 33 g/dL (31-37); MEAN CORPUSCULAR VOLUME 94 fL (79-100); MONO # 0.3 x10^3/uL (0.0-1.1); MONO % 3 % (0-9); NEUT # 9.4 x10^3/uL (1.8-7.7); NEUT % 95 % (31-73); PLATELET COUNT 219 x10^3/uL (140-400); RED BLOOD COUNT 4.28 x10^6/uL (4.30-5.70); RED CELL DISTRIBUTION WIDTH 15.2 % (11.5-14.5); WHITE BLOOD COUNT 9.9 x10^3/uL (4.0-11.0)
[2020-11-05 13:13] LABS: ALBUMIN 2.3 g/dL (3.4-5.0); ALBUMIN/GLOBULIN RATIO 0.7 (1.0-1.7); CALCIUM 8.6 mg/dL (8.5-10.1); CREATININE 0.9 mg/dL (0.7-1.3); GFR 80.2; POTASSIUM 4.5 mmol/L (3.5-5.1); TOTAL BILIRUBIN 1.2 mg/dL (0.2-1.0); TOTAL PROTEIN 5.7 g/dL (6.4-8.2)
--- NOTE | 2020-11-05 13:47 | CONS ---
DATE OF CONSULTATION: 11/05/2020 ATTENDING PHYSICIAN: Gamaliel Lomeli MD HISTORY OF PRESENT ILLNESS: The patient is seen in Pulmonary consultation at the request of Dr. Lomeli for abnormal CT angiogram, revealing no evidence of pulmonary emboli. There is ground glass ill-defined airspace opacities in left lower lobe. There was also a right lower lobe nodular infiltrate. The patient is an 85-year-old who has no significant past medical history, smoked for 77 years. He is mostly homebound, but has not undergone COVID-19 vaccination. He presented after falling 2 days ago, having rib pain. He was found to have O2 saturations of 84%. He underwent evaluation. CT angiogram as indicated above revealing no pulmonary embolism. There were several findings of ground glass ill-defined opacities in the left lower lobe. There is a lobulated nodule in the right lower lobe measuring 1.9 x 1.7 x 2.0 cm, this is concerning for malignancy. I was asked to see him in consultation. The patient denies any fever, chills or night sweats. He is weak. He denied any COVID-19 exposures. He had a nuclear Augmentin test for COVID, which was positive. PAST MEDICAL HISTORY: Lower back pain. PAST SURGICAL HISTORY: Tonsillectomy. SOCIAL HISTORY: He smokes 1 pack of cigarettes a day. REVIEW OF SYSTEMS: As indicated above, otherwise a 10-point system was reviewed and negative. CURRENT MEDICATIONS: List was reviewed. PHYSICAL EXAMINATION: VITAL SIGNS: Stable. O2 saturation greater than 92%. Since admission, the patient has been afebrile. HEENT: Eyes; the sclerae were nonicteric. NECK: Jugular venous distention was not elevated. No lymphadenopathy. CHEST: Full expansion. LUNGS: Rales throughout both lung silvestre. HEART: Regular rate and rhythm with S1, S2. No S3. ABDOMEN: Soft, nontender, nondistended. EXTREMITIES: No clubbing, cyanosis or edema. NEUROLOGIC: The patient was awake, alert, following commands. A detailed neuro exam was not performed. LABORATORY DATA: PCR testing for COVID was positive. Electrolytes were noted. Albumin was low. Lactic acid level was not elevated. White count was elevated. CT as indicated above. IMPRESSION: 1. Acute hypoxemic respiratory failure, multifactorial. COVID-19 viral pneumonia. 2. Possible bacterial pneumonia. 3. Sepsis secondary to above. 4. Back pain. 5. Acute kidney injury. 6. Severe protein malnutrition, present upon admission. 7. Abnormal CT chest. Right lower lobe lobulated nodule appears to be concerning for cancer, left lower lobe infiltrate is more than likely related to COVID-19. PLAN: 1. We will continue support with oxygen supplementation. 2. The patient undergoing IV antibiotics. 3. IV remdesivir. 4. Dexamethasone. 5. Oxygen supplementation. 6. Deep venous thrombosis and gastrointestinal prophylaxis. 7. IV zinc and thiamine. DISCUSSION: We will continue support with the above measures, repeat CT chest in 8 weeks. Note that the patient is a [id number] candidate. I do appreciate the privilege in sharing in the patient's care. MONA DR: Nichole TID: [id number]
[2020-11-05] MEDS: REMDESIVIR 100mg in NORMAL SALINE 250ML X 4 DAYS IV SCH (13:48)
--- NOTE | 2020-11-05 14:47 | PDOC ---
[facility] PROGRESS NOTE Date of Service DOS: DATE: 11/05/20 TIME: 14:44 Chief Complaint Chief Complaint Acute respiratory failure with hypoxia - due to COVID 19 pneumonia and bilateral pneumonia Sepsis - IVF + antibiotics, though this is COVID 19 related. 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 Will consult pulm, will definitely need f/u outpatient tobacco use disorder, - Dr. Lomeli counseled on cessation History of Present Illness History of Present Illness breathing OK notable weakness and poor PO intake still hypoxia, Vitals/I&O Vitals/I&O: Vital Signs Date Time Temp Pulse Resp B/P (MAP) Pulse Ox O2 Delivery O2 Flow Rate FiO2 11/05/20 11:00 97.9 69 20 98/47 (64) 92 Nasal Cannula 2.0 97.9 I & O 11/04/20 11/04/20 11/05/20 15:00 23:00 07:00 Intake Total 1600 ml 100 ml 50 ml Balance 1600 ml 100 ml 50 ml Physical Exam General: Alert, Oriented X3, Cooperative, mild distress, Other (Cachectic appearing) Abdomen: Normal bowel sounds, Soft, No tenderness, No hepatosplenomegaly, No masses Extremities: No clubbing, No cyanosis, No edema, Normal pulses, No tenderness/swelling Skin: No rashes, No breakdown, No significant lesion Labs Labs: Laboratory Tests Test 11/05/20 12:30 White Blood Count 9.9 x10^3/uL (4.0-11.0) Red Blood Count 4.28 x10^6/uL (4.30-5.70) Hemoglobin 13.4 g/dL (13.0-17.5) Hematocrit 40.2 % (39.0-53.0) Mean Corpuscular Volume 94 fL (79-100) Mean Corpuscular Hemoglobin 31 pg (25-35) Mean Corpuscular Hemoglobin Concent 33 g/dL (31-37) Red Cell Distribution Width 15.2 % (11.5-14.5) Platelet Count 219 x10^3/uL (140-400) Neutrophils (%) (Auto) 95 % (31-73) Lymphocytes (%) (Auto) 2 % (24-48) Monocytes (%) (Auto) 3 % (0-9) Eosinophils (%) (Auto) 0 % (0-3) Basophils (%) (Auto) 0 % (0-3) Neutrophils # (Auto) 9.4 x10^3/uL (1.8-7.7) Lymphocytes # (Auto) 0.2 x10^3/uL (1.0-4.8) Monocytes # (Auto) 0.3 x10^3/uL (0.0-1.1) Eosinophils # (Auto) 0.0 x10^3/uL (0.0-0.7) Basophils # (Auto) 0.0 x10^3/uL (0.0-0.2) Sodium Level 141 mmol/L (136-145) Potassium Level 4.5 mmol/L (3.5-5.1) Chloride Level 105 mmol/L (98-107) Carbon Dioxide Level 32 mmol/L (21-32) Anion Gap 4 (6-14) Blood Urea Nitrogen 34 mg/dL (8-26) Creatinine 0.9 mg/dL (0.7-1.3) Estimated GFR (Cockcroft-Gault) 80.2 BUN/Creatinine Ratio 38 (6-20) Glucose Level 137 mg/dL (70-99) Calcium Level 8.6 mg/dL (8.5-10.1) Total Bilirubin 1.2 mg/dL (0.2-1.0) Aspartate Amino Transf (AST/SGOT) 12 U/L (15-37) Alanine Aminotransferase (ALT/SGPT) 18 U/L (16-63) Alkaline Phosphatase 60 U/L (46-116) Total Protein 5.7 g/dL (6.4-8.2) Albumin 2.3 g/dL (3.4-5.0) Albumin/Globulin Ratio 0.7 (1.0-1.7) Review of Systems Review of Systems: nausea weakness Assessment and Plan Assessmemt and Plan Problems Medical Problems: (1) Acute dyspnea Status: Acute (2) Multifocal pneumonia Status: Acute (3) Person under investigation for COVID-19 Status: Acute (4) Sepsis Status: Acute Comment Review of Relevant I have reviewed the following items kaylah (where applicable) has been applied. Medications: Current Medications Medications (Trade) Dose Ordered Sig/Vida Route PRN Reason Start Time Stop Time Status Last Admin Dose Admin Piperacillin Sod/ Tazobactam Sod 3.375 gm/Sodium Chloride 50 ml @ 100 mls/hr Q6HRS IV 11/04/20 18:00 11/05/20 12:50 Mirtazapine (Remeron) 7.5 mg QHS PO 11/04/20 21:00 11/04/20 20:46 Enoxaparin Sodium (Lovenox 40mg Syringe) 40 mg Q24H SQ 11/04/20 16:00 11/04/20 18:12 Remdesivir 200 mg/ Sodium Chloride 210 ml @ 210 mls/hr 1X ONCE IV 11/04/20 15:00 11/04/20 15:59 DC 11/04/20 14:56 Remdesivir 100 mg/ Sodium Chloride 230 ml @ 460 mls/hr Q24H IV 11/05/20 14:00 11/08/20 14:29 11/05/20 13:48 Miscellaneous (Lidoderm Patch Removal) 1 ea QHS MC 11/04/20 21:00 11/04/20 21:00 Sodium Chloride ([place] Saline Nasal) 1 jermaine PRN DAILY PRN NS NASAL CONGESTION 11/04/20 15:45 11/04/20 18:12 Fluticasone Propionate (Flonase) 2 spray DAILY NS 11/04/20 16:00 11/05/20 09:09 Vancomycin HCl 1 gm/Sodium Chloride 250 ml @ 250 mls/hr Q24H IV 11/05/20 10:00 11/05/20 10:28 Justifications for Admission Other Justification GABRIEL AVILES MD November 05, 2020 14:47
[2020-11-05 15:00] VITALS: BP 97/49
[2020-11-05] MEDS: VANCOMYCIN PER PHARMACY MC PRN (16:16)
[2020-11-05] MEDS: ENOXAPARIN 40 MG/0.4 ML SYRINGE. SQ SCH (16:18)
[2020-11-05 19:00] VITALS: BP 101/50
[2020-11-05] MEDS: MIRTAZAPINE 7.5 MG TABLET. PO SCH (21:07)
[2020-11-05] MEDS: PATCH REMOVAL. MC SCH (21:07)
[2020-11-05] MEDS: LACTOBACILLUS RHAMNOSUS GG 1 CAPSULE. PO SCH (21:07)
[2020-11-05 23:02] VITALS: BP 112/60
[2020-11-06 00:34] LABS: BILIRUBIN,URINE NEGATIVE (NEG); CLARITY,URINE CLEAR; COLOR,URINE YELLOW; NITRITE,URINE NEGATIVE (NEG); PH,URINE 5.5 (<5.0-8.0); PROTEIN,URINE NEGATIVE (NEG-TRACE)
[2020-11-06 00:42] LABS: BACTERIA,URINE 0 /HPF (0-FEW); RBC,URINE OCC /HPF (0-2); WBC,URINE 0 /HPF (0-4)
[2020-11-06 03:04] VITALS: BP 120/69
[2020-11-06] MEDS: AMINO AC 3%/ELECTROLYTE/GLYCER 1,000 ML IV SCH ×3 (03:21→20:59)
[2020-11-06] MEDS: PIPERACILLIN/TAZOBACTAM 3.375 GM in IV NORMAL SALINE 50ML 50 ML IV SCH ×4 (05:57→23:04)
[2020-11-06 07:00] VITALS: BP 131/70
[2020-11-06] MEDS: LIDOCAINE (700MG/PATCH) PATCH. TD SCH (09:00)
[2020-11-06] MEDS: LACTOBACILLUS RHAMNOSUS GG 1 CAPSULE. PO SCH ×2 (09:01→20:59)
[2020-11-06] MEDS: ZINC SULFATE 220 MG CAPSULE. PO SCH (09:01)
[2020-11-06] MEDS: THIAMINE 100 MG TABLET. PO SCH (09:01)
[2020-11-06] MEDS: FLUTICASONE 50MCG/NASAL SPRAY 16GM BOTTLE. NS SCH (09:01)
[2020-11-06] MEDS: DEXAMETHASONE SOD PHOS 4 MG/ML VIAL IVP SCH (09:02)
[2020-11-06] MEDS: VANCOMYCIN 1 GM in IV NORMAL SALINE 250ML 250 ML IV SCH (09:59)
[2020-11-06 10:28] LABS: VANC TR 7.4 mcg/mL (10.0-20.0)
[2020-11-06 10:30] LABS: ALBUMIN 2.7 g/dL (3.4-5.0); ALBUMIN/GLOBULIN RATIO 0.9 (1.0-1.7); CALCIUM 8.5 mg/dL (8.5-10.1); CREATININE 0.9 mg/dL (0.7-1.3); GFR 80.2; POTASSIUM 4.5 mmol/L (3.5-5.1); TOTAL BILIRUBIN 1.3 mg/dL (0.2-1.0); TOTAL PROTEIN 5.6 g/dL (6.4-8.2)
[2020-11-06] MEDS: VANCOMYCIN PER PHARMACY MC PRN (10:47)
--- NOTE | 2020-11-06 10:47 | NUR ---
Pharmacy Vancomycin Dosing Note S:Consulted to monitor and dose vancomycin started 11/04/20. O:ELIECER ALMARAZ is a 85 year old M with Sepsis Pneumonia . Height: 5 feet, 10 inches Weight: 52.0 kg [place] Body Weight: 73.00 Adjusted Body Weight: 64.60 Dosing Weight: Actual Other Antibiotics: ZOSYN LABS: Last BUN: 34 Last Creatinine: 0.9 Creatinine Clearance: 39 mL/min Last WBC: 9.9 Last Procalcitonin: Tmax (past 24 hours): Microbiology: I/O: 1750/- Drug Levels: Last Trough level: 7.4 on 11/06/20 at 0930 Last dose given 11/06/20 at 1000 Vancomycin Dosing: Loading Dose: 1500 mg x1 Dosing Weight: Actual Target Trough: 15-20 A: Based on: LEVEL P: 1. CHANGE Vancomycin 750 mg IV q12h 2. Follow up Trough level on 11/08/20 at 0930 3. Pharmacy will continue to monitor, follow and adjust therapy as needed. REX HERRING [facility], 11/06/20 [id number]
--- NOTE | 2020-11-06 10:56 | PDOC ---
PULMONARY PROGRESS NOTES DATE: 11/06/20 TIME: 10:56 Subjective pt. is resting on 2 liters NC afebrile no increased SOA or cough Vitals Vital Signs Date Time Temp Pulse Resp B/P (MAP) Pulse Ox O2 Delivery O2 Flow Rate FiO2 11/06/20 08:30 Nasal Cannula 2.0 11/06/20 07:00 97.5 79 18 131/70 (90) 98 97.5 ROS: No Nausea, No Chest Pain, No Abdominal Pain, No Increase Cough General: Alert Lungs: Crackles Cardiovascular: S1 Abdomen: Soft Neuro Exam: Alert Skin: Warm, Dry Labs Laboratory Tests Test 11/05/20 12:30 11/06/20 00:30 11/06/20 09:30 White Blood Count 9.9 x10^3/uL (4.0-11.0) Red Blood Count 4.28 x10^6/uL (4.30-5.70) Hemoglobin 13.4 g/dL (13.0-17.5) Hematocrit 40.2 % (39.0-53.0) Mean Corpuscular Volume 94 fL (79-100) Mean Corpuscular Hemoglobin 31 pg (25-35) Mean Corpuscular Hemoglobin Concent 33 g/dL (31-37) Red Cell Distribution Width 15.2 % (11.5-14.5) Platelet Count 219 x10^3/uL (140-400) Neutrophils (%) (Auto) 95 % (31-73) Lymphocytes (%) (Auto) 2 % (24-48) Monocytes (%) (Auto) 3 % (0-9) Eosinophils (%) (Auto) 0 % (0-3) Basophils (%) (Auto) 0 % (0-3) Neutrophils # (Auto) 9.4 x10^3/uL (1.8-7.7) Lymphocytes # (Auto) 0.2 x10^3/uL (1.0-4.8) Monocytes # (Auto) 0.3 x10^3/uL (0.0-1.1) Eosinophils # (Auto) 0.0 x10^3/uL (0.0-0.7) Basophils # (Auto) 0.0 x10^3/uL (0.0-0.2) Sodium Level 141 mmol/L (136-145) 142 mmol/L (136-145) Potassium Level 4.5 mmol/L (3.5-5.1) 4.5 mmol/L (3.5-5.1) Chloride Level 105 mmol/L (98-107) 105 mmol/L (98-107) Carbon Dioxide Level 32 mmol/L (21-32) 33 mmol/L (21-32) Anion Gap 4 (6-14) 4 (6-14) Blood Urea Nitrogen 34 mg/dL (8-26) 26 mg/dL (8-26) Creatinine 0.9 mg/dL (0.7-1.3) 0.9 mg/dL (0.7-1.3) Estimated GFR (Cockcroft-Gault) 80.2 80.2 BUN/Creatinine Ratio 38 (6-20) 29 (6-20) Glucose Level 137 mg/dL (70-99) 88 mg/dL (70-99) Calcium Level 8.6 mg/dL (8.5-10.1) 8.5 mg/dL (8.5-10.1) Total Bilirubin 1.2 mg/dL (0.2-1.0) 1.3 mg/dL (0.2-1.0) Aspartate Amino Transf (AST/SGOT) 12 U/L (15-37) 14 U/L (15-37) Alanine Aminotransferase (ALT/SGPT) 18 U/L (16-63) 26 U/L (16-63) Alkaline Phosphatase 60 U/L (46-116) 69 U/L (46-116) Total Protein 5.7 g/dL (6.4-8.2) 5.6 g/dL (6.4-8.2) Albumin 2.3 g/dL (3.4-5.0) 2.7 g/dL (3.4-5.0) Albumin/Globulin Ratio 0.7 (1.0-1.7) 0.9 (1.0-1.7) Urine Collection Type Unknown Urine Color Yellow Urine Clarity Clear Urine pH 5.5 (<5.0-8.0) Urine Specific [place] 1.020 (1.000-1.030) Urine Protein Negative mg/dL (NEG-TRACE) Urine Glucose (UA) Negative mg/dL (NEG) Urine Ketones (Stick) Negative mg/dL (NEG) Urine Blood Negative (NEG) Urine Nitrite Negative (NEG) Urine Bilirubin Negative (NEG) Urine Urobilinogen Dipstick 1.0 mg/dL (0.2 mg/dL) Urine Leukocyte Esterase Negative (NEG) Urine RBC Occ /HPF (0-2) Urine WBC 0 /HPF (0-4) Urine Squamous Epithelial Cells Occ /LPF Urine Bacteria 0 /HPF (0-FEW) Vancomycin Level Trough 7.4 mcg/mL (10.0-20.0) Vancomycin Last Dose Date 11/05/20 Vancomycin Last Dose Time 1000 Laboratory Tests Test 11/05/20 12:30 11/06/20 00:30 11/06/20 09:30 White Blood Count 9.9 x10^3/uL (4.0-11.0) Red Blood Count 4.28 x10^6/uL (4.30-5.70) Hemoglobin 13.4 g/dL (13.0-17.5) Hematocrit 40.2 % (39.0-53.0) Mean Corpuscular Volume 94 fL (79-100) Mean Corpuscular Hemoglobin 31 pg (25-35) Mean Corpuscular Hemoglobin Concent 33 g/dL (31-37) Red Cell Distribution Width 15.2 % (11.5-14.5) Platelet Count 219 x10^3/uL (140-400) Neutrophils (%) (Auto) 95 % (31-73) Lymphocytes (%) (Auto) 2 % (24-48) Monocytes (%) (Auto) 3 % (0-9) Eosinophils (%) (Auto) 0 % (0-3) Basophils (%) (Auto) 0 % (0-3) Neutrophils # (Auto) 9.4 x10^3/uL (1.8-7.7) Lymphocytes # (Auto) 0.2 x10^3/uL (1.0-4.8) Monocytes # (Auto) 0.3 x10^3/uL (0.0-1.1) Eosinophils # (Auto) 0.0 x10^3/uL (0.0-0.7) Basophils # (Auto) 0.0 x10^3/uL (0.0-0.2) Sodium Level 141 mmol/L (136-145) 142 mmol/L (136-145) Potassium Level 4.5 mmol/L (3.5-5.1) 4.5 mmol/L (3.5-5.1) Chloride Level 105 mmol/L (98-107) 105 mmol/L (98-107) Carbon Dioxide Level 32 mmol/L (21-32) 33 mmol/L (21-32) Anion Gap 4 (6-14) 4 (6-14) Blood Urea Nitrogen 34 mg/dL (8-26) 26 mg/dL (8-26) Creatinine 0.9 mg/dL (0.7-1.3) 0.9 mg/dL (0.7-1.3) Estimated GFR (Cockcroft-Gault) 80.2 80.2 BUN/Creatinine Ratio 38 (6-20) 29 (6-20) Glucose Level 137 mg/dL (70-99) 88 mg/dL (70-99) Calcium Level 8.6 mg/dL (8.5-10.1) 8.5 mg/dL (8.5-10.1) Total Bilirubin 1.2 mg/dL (0.2-1.0) 1.3 mg/dL (0.2-1.0) Aspartate Amino Transf (AST/SGOT) 12 U/L (15-37) 14 U/L (15-37) Alanine Aminotransferase (ALT/SGPT) 18 U/L (16-63) 26 U/L (16-63) Alkaline Phosphatase 60 U/L (46-116) 69 U/L (46-116) Total Protein 5.7 g/dL (6.4-8.2) 5.6 g/dL (6.4-8.2) Albumin 2.3 g/dL (3.4-5.0) 2.7 g/dL (3.4-5.0) Albumin/Globulin Ratio 0.7 (1.0-1.7) 0.9 (1.0-1.7) Urine Collection Type Unknown Urine Color Yellow Urine Clarity Clear Urine pH 5.5 (<5.0-8.0) Urine Specific [place] 1.020 (1.000-1.030) Urine Protein Negative mg/dL (NEG-TRACE) Urine Glucose (UA) Negative mg/dL (NEG) Urine Ketones (Stick) Negative mg/dL (NEG) Urine Blood Negative (NEG) Urine Nitrite Negative (NEG) Urine Bilirubin Negative (NEG) Urine Urobilinogen Dipstick 1.0 mg/dL (0.2 mg/dL) Urine Leukocyte Esterase Negative (NEG) Urine RBC Occ /HPF (0-2) Urine WBC 0 /HPF (0-4) Urine Squamous Epithelial Cells Occ /LPF Urine Bacteria 0 /HPF (0-FEW) Vancomycin Level Trough 7.4 mcg/mL (10.0-20.0) Vancomycin Last Dose Date 11/05/20 Vancomycin Last Dose Time 1000 Impression . IMPRESSION: 1. Acute hypoxemic respiratory failure, multifactorial. COVID-19 viral pneumonia. 2. Possible bacterial pneumonia. 3. Sepsis secondary to above. 4. Back pain. 5. Acute kidney injury. 6. Severe protein malnutrition, present upon admission. 7. Abnormal CT chest. Right lower lobe lobulated nodule appears to be concerning for cancer, left lower lobe infiltrate is more than likely related to COVID-19. Plan . PLAN: Continue supplemental oxygen to keep sats above 92%, currently on 2 liters [place] Continue ABX with vanco and zosyn Continue remdesivir Continue Dexamethasone with slow tpaer Continue zinc and thiamine DVT/GI PPX D/W RN Pt. is DNR ERIS BARILLAS MD Nov 06, 2020 10:56
[2020-11-06 11:00] VITALS: BP 161/72
--- NOTE | 2020-11-06 11:03 | PDOC ---
[facility] [facility] PROGRESS NOTE Date of Service DOS: DATE: 11/06/20 TIME: 11:01 Chief Complaint Chief Complaint Acute respiratory failure with hypoxia - due to COVID 19 pneumonia and bilateral pneumonia Sepsis - IVF + antibiotics, though this is COVID 19 related. 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 tobacco use disorder History of Present Illness History of Present Illness 11/06/2020 Patient seen and examined Discussed with RN Chart reviewed Discussed with case management Patient is up on the commode (just sneezed has a lot of secretions I handed him a box of tissues) breathing OK notable weakness and poor PO intake still hypoxia, Vitals/I&O Vitals/I&O: Vital Signs Date Time Temp Pulse Resp B/P (MAP) Pulse Ox O2 Delivery O2 Flow Rate FiO2 11/06/20 08:30 Nasal Cannula 2.0 11/06/20 07:00 97.5 79 18 131/70 (90) 98 97.5 I & O 11/05/20 11/05/20 11/06/20 15:00 23:00 07:00 Intake Total 530 ml 1050 ml 1100 ml Output Total 1300 ml Balance 530 ml 1050 ml -200 ml Physical Exam General: Cooperative, mild distress, Other (Cachectic appearing) Heart: Other (Tachycardic) Lungs: Crackles Abdomen: Normal bowel sounds, Soft, No tenderness, No hepatosplenomegaly, No masses Extremities: No clubbing, No cyanosis, No edema, Normal pulses, No tenderness/swelling Skin: No rashes, No breakdown, No significant lesion Labs Labs: Laboratory Tests Test 11/05/20 12:30 11/06/20 00:30 11/06/20 09:30 White Blood Count 9.9 x10^3/uL (4.0-11.0) Red Blood Count 4.28 x10^6/uL (4.30-5.70) Hemoglobin 13.4 g/dL (13.0-17.5) Hematocrit 40.2 % (39.0-53.0) Mean Corpuscular Volume 94 fL (79-100) Mean Corpuscular Hemoglobin 31 pg (25-35) Mean Corpuscular Hemoglobin Concent 33 g/dL (31-37) Red Cell Distribution Width 15.2 % (11.5-14.5) Platelet Count 219 x10^3/uL (140-400) Neutrophils (%) (Auto) 95 % (31-73) Lymphocytes (%) (Auto) 2 % (24-48) Monocytes (%) (Auto) 3 % (0-9) Eosinophils (%) (Auto) 0 % (0-3) Basophils (%) (Auto) 0 % (0-3) Neutrophils # (Auto) 9.4 x10^3/uL (1.8-7.7) Lymphocytes # (Auto) 0.2 x10^3/uL (1.0-4.8) Monocytes # (Auto) 0.3 x10^3/uL (0.0-1.1) Eosinophils # (Auto) 0.0 x10^3/uL (0.0-0.7) Basophils # (Auto) 0.0 x10^3/uL (0.0-0.2) Sodium Level 141 mmol/L (136-145) 142 mmol/L (136-145) Potassium Level 4.5 mmol/L (3.5-5.1) 4.5 mmol/L (3.5-5.1) Chloride Level 105 mmol/L (98-107) 105 mmol/L (98-107) Carbon Dioxide Level 32 mmol/L (21-32) 33 mmol/L (21-32) Anion Gap 4 (6-14) 4 (6-14) Blood Urea Nitrogen 34 mg/dL (8-26) 26 mg/dL (8-26) Creatinine 0.9 mg/dL (0.7-1.3) 0.9 mg/dL (0.7-1.3) Estimated GFR (Cockcroft-Gault) 80.2 80.2 BUN/Creatinine Ratio 38 (6-20) 29 (6-20) Glucose Level 137 mg/dL (70-99) 88 mg/dL (70-99) Calcium Level 8.6 mg/dL (8.5-10.1) 8.5 mg/dL (8.5-10.1) Total Bilirubin 1.2 mg/dL (0.2-1.0) 1.3 mg/dL (0.2-1.0) Aspartate Amino Transf (AST/SGOT) 12 U/L (15-37) 14 U/L (15-37) Alanine Aminotransferase (ALT/SGPT) 18 U/L (16-63) 26 U/L (16-63) Alkaline Phosphatase 60 U/L (46-116) 69 U/L (46-116) Total Protein 5.7 g/dL (6.4-8.2) 5.6 g/dL (6.4-8.2) Albumin 2.3 g/dL (3.4-5.0) 2.7 g/dL (3.4-5.0) Albumin/Globulin Ratio 0.7 (1.0-1.7) 0.9 (1.0-1.7) Urine Collection Type Unknown Urine Color Yellow Urine Clarity Clear Urine pH 5.5 (<5.0-8.0) Urine Specific [place] 1.020 (1.000-1.030) Urine Protein Negative mg/dL (NEG-TRACE) Urine Glucose (UA) Negative mg/dL (NEG) Urine Ketones (Stick) Negative mg/dL (NEG) Urine Blood Negative (NEG) Urine Nitrite Negative (NEG) Urine Bilirubin Negative (NEG) Urine Urobilinogen Dipstick 1.0 mg/dL (0.2 mg/dL) Urine Leukocyte Esterase Negative (NEG) Urine RBC Occ /HPF (0-2) Urine WBC 0 /HPF (0-4) Urine Squamous Epithelial Cells Occ /LPF Urine Bacteria 0 /HPF (0-FEW) Vancomycin Level Trough 7.4 mcg/mL (10.0-20.0) Vancomycin Last Dose Date 11/05/20 Vancomycin Last Dose Time 1000 Assessment and Plan Assessmemt and Plan Problems Medical Problems: (1) Acute dyspnea Status: Acute (2) Multifocal pneumonia Status: Acute (3) Person under investigation for COVID-19 Status: Acute (4) Sepsis Status: Acute Acute respiratory failure with hypoxia - due to COVID 19 pneumonia and bilateral pneumonia Sepsis - IVF + antibiotics, though this is COVID 19 related. 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 Will consult pulm, will definitely need f/u outpatient tobacco use disorder, - Dr. Lomeli counseled on cessation Plan Covid protocol Respiratory isolation Home meds DVT prophylaxis O2 per nasal cannula PPN Zosyn Vanco and remdesivir Full code Appreciate subspecialist input Prognosis long-term is guarded Comment Review of Relevant I have reviewed the following items kaylah (where applicable) has been applied. Medications: Current Medications Medications (Trade) Dose Ordered Sig/Vida Route PRN Reason Start Time Stop Time Status Last Admin Dose Admin Remdesivir 100 mg/ Sodium Chloride 230 ml @ 460 mls/hr Q24H IV 11/05/20 14:00 11/08/20 14:29 11/05/20 13:48 Vancomycin HCl (Vancomycin Trough Level) 1 each 1X ONCE MC 11/06/20 09:30 11/06/20 09:31 DC 11/06/20 09:14 Lactobacillus Rhamnosus (Culturelle) 1 cap BID PO 11/05/20 21:00 11/06/20 09:01 Justifications for Admission Other Justification ELMER VELA III DO Nov 06, 2020 11:03
[2020-11-06 13:10] LABS: BASO % 0 % (0-3); EOS % 0 % (0-3); HEMATOCRIT 42.4 % (39.0-53.0); HEMOGLOBIN 14.2 g/dL (13.0-17.5); LYMPH # 0.3 x10^3/uL (1.0-4.8); LYMPH % 2 % (24-48); MEAN CORPUSCULAR HEMOGLOBIN 32 pg (25-35); MEAN CORPUSCULAR HGB CONC 33 g/dL (31-37); MEAN CORPUSCULAR VOLUME 94 fL (79-100); MONO # 0.4 x10^3/uL (0.0-1.1); MONO % 2 % (0-9); NEUT # 14.8 x10^3/uL (1.8-7.7); NEUT % 96 % (31-73); PLATELET COUNT 245 x10^3/uL (140-400); RED CELL DISTRIBUTION WIDTH 14.9 % (11.5-14.5); WHITE BLOOD COUNT 15.5 x10^3/uL (4.0-11.0)
[2020-11-06] MEDS: REMDESIVIR 100mg in NORMAL SALINE 250ML X 4 DAYS IV SCH (13:48)
[2020-11-06 15:00] VITALS: BP 120/65
[2020-11-06] MEDS: ENOXAPARIN 40 MG/0.4 ML SYRINGE. SQ SCH (15:32)
--- NOTE | 2020-11-06 15:33 | NUR ---
IV fluids nonadministered by this RN, previous bottle still infusing. Refer to EMAR for further details.
--- NOTE | 2020-11-06 15:43 | NUR ---
SW following. Discussed with RN, pt from home alone, daughters help out, 2L (does not use oxygen at home), regular diet and PPN, COVID-19 positive. Therapy recommending SNF. SASHA spoke with pt's daughterLydia - explained the different options, and reiterated that SASHA has been unable to find any SNF taking COVID positive at this time. Summer reported that the patient is wanting to go home. Summer requested SW speak with her brother, Tay. SASHA spoke with Tay - explained the options. Tay is going to speak with his sisters and they will make a decision. SASHA will continue to follow.
[2020-11-06 19:00] VITALS: BP 118/61
[2020-11-06] MEDS: PATCH REMOVAL. MC SCH (20:01)
[2020-11-06] MEDS: MIRTAZAPINE 7.5 MG TABLET. PO SCH (20:59)
[2020-11-06] MEDS: VANCOMYCIN 750 MG in IV NORMAL SALINE 250ML 250 ML IV SCH (21:00)
[2020-11-06 23:00] VITALS: BP 140/73
[2020-11-07] VITALS (7 sets, daily range): BP systolic 100–136; BP diastolic 48–80
[2020-11-07] MEDS: AMINO AC 3%/ELECTROLYTE/GLYCER 1,000 ML IV SCH ×2 (04:15→16:45)
[2020-11-07] MEDS: PIPERACILLIN/TAZOBACTAM 3.375 GM in IV NORMAL SALINE 50ML 50 ML IV SCH ×4 (05:31→23:33)
[2020-11-07] MEDS: THIAMINE 100 MG TABLET. PO SCH (08:19)
[2020-11-07] MEDS: LACTOBACILLUS RHAMNOSUS GG 1 CAPSULE. PO SCH ×2 (08:19→21:14)
[2020-11-07] MEDS: ZINC SULFATE 220 MG CAPSULE. PO SCH (08:19)
[2020-11-07] MEDS: DEXAMETHASONE SOD PHOS 4 MG/ML VIAL IVP SCH (08:20)
[2020-11-07] MEDS: LIDOCAINE (700MG/PATCH) PATCH. TD SCH (08:20)
[2020-11-07] MEDS: FLUTICASONE 50MCG/NASAL SPRAY 16GM BOTTLE. NS SCH (08:20)
[2020-11-07] MEDS: VANCOMYCIN 750 MG in IV NORMAL SALINE 250ML 250 ML IV SCH ×2 (10:00→21:14)
--- NOTE | 2020-11-07 10:15 | PDOC ---
[facility] [facility] PROGRESS NOTE Date of Service DOS: DATE: 11/07/20 TIME: 10:14 Chief Complaint Chief Complaint Acute respiratory failure with hypoxia - due to COVID 19 pneumonia and bilateral pneumonia Sepsis - IVF + antibiotics, though this is COVID 19 related. 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 tobacco use disorder History of Present Illness History of Present Illness 11/07/2020 Patient seen and examined He is in bed eating breakfast Has O2 per nasal cannula On day 3 of remdesivir Discussed with RN Discussed with case management Chart reviewed 11/06/2020 Patient seen and examined Discussed with RN Chart reviewed Discussed with case management Patient is up on the commode (just sneezed has a lot of secretions I handed him a box of tissues) breathing OK notable weakness and poor PO intake still hypoxia, Vitals/I&O Vitals/I&O: Vital Signs Date Time Temp Pulse Resp B/P (MAP) Pulse Ox O2 Delivery O2 Flow Rate FiO2 11/07/20 08:00 Nasal Cannula 4.0 11/07/20 07:00 97.4 87 18 136/74 (94) 96 97.4 I & O 11/06/20 11/06/20 11/07/20 15:00 23:00 07:00 Intake Total 650 ml 1540 ml 400 ml Balance 650 ml 1540 ml 400 ml Physical Exam General: Cooperative, mild distress, Other (Cachectic appearing) Heart: Other (Tachycardic) Lungs: Crackles Abdomen: Normal bowel sounds, Soft, No tenderness, No hepatosplenomegaly, No masses Extremities: No clubbing, No cyanosis, No edema, Normal pulses, No tenderness/swelling Skin: No rashes, No breakdown, No significant lesion Labs Labs: Laboratory Tests Test 11/06/20 12:45 White Blood Count 15.5 x10^3/uL (4.0-11.0) Red Blood Count 4.50 x10^6/uL (4.30-5.70) Hemoglobin 14.2 g/dL (13.0-17.5) Hematocrit 42.4 % (39.0-53.0) Mean Corpuscular Volume 94 fL (79-100) Mean Corpuscular Hemoglobin 32 pg (25-35) Mean Corpuscular Hemoglobin Concent 33 g/dL (31-37) Red Cell Distribution Width 14.9 % (11.5-14.5) Platelet Count 245 x10^3/uL (140-400) Neutrophils (%) (Auto) 96 % (31-73) Lymphocytes (%) (Auto) 2 % (24-48) Monocytes (%) (Auto) 2 % (0-9) Eosinophils (%) (Auto) 0 % (0-3) Basophils (%) (Auto) 0 % (0-3) Neutrophils # (Auto) 14.8 x10^3/uL (1.8-7.7) Lymphocytes # (Auto) 0.3 x10^3/uL (1.0-4.8) Monocytes # (Auto) 0.4 x10^3/uL (0.0-1.1) Eosinophils # (Auto) 0.0 x10^3/uL (0.0-0.7) Basophils # (Auto) 0.0 x10^3/uL (0.0-0.2) Assessment and Plan Assessmemt and Plan Problems Medical Problems: (1) Acute dyspnea Status: Acute (2) Multifocal pneumonia Status: Acute (3) Person under investigation for COVID-19 Status: Acute (4) Sepsis Status: Acute Acute respiratory failure with hypoxia - due to COVID 19 pneumonia and bilateral pneumonia Sepsis - IVF + antibiotics, though this is COVID 19 related. 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 Will consult pulm, will definitely n eed f/u outpatient tobacco use disorder, - Dr. Lomeli counseled on cessation Plan Covid protocol Respiratory isolation Home meds DVT prophylaxis Encourage p.o. intake O2 per nasal cannula PPN Zosyn Vanco and remdesivir Full code Appreciate subspecialist input Comment Review of Relevant I have reviewed the following items kaylah (where applicable) has been applied. Medications: Current Medications Medications (Trade) Dose Ordered Sig/Vida Route PRN Reason Start Time Stop Time Status Last Admin Dose Admin Vancomycin HCl 750 mg/Sodium Chloride 250 ml @ 250 mls/hr Q12H IV 11/06/20 22:00 11/06/20 21:00 Justifications for Admission Other Justification ELMER VELA III DO Nov 07, 2020 10:15
--- NOTE | 2020-11-07 10:33 | PDOC ---
PULMONARY PROGRESS NOTES DATE: 11/07/20 TIME: 10:33 Subjective pt. is resting on 2 liters NC afebrile no SOA or cough no overnight events Vitals Vital Signs Date Time Temp Pulse Resp B/P (MAP) Pulse Ox O2 Delivery O2 Flow Rate FiO2 11/07/20 08:00 Nasal Cannula 4.0 11/07/20 07:00 97.4 87 18 136/74 (94) 96 97.4 ROS: No Nausea, No Chest Pain, No Abdominal Pain, No Increase Cough General: Alert, Oriented X4 Lungs: Crackles Cardiovascular: S1 Abdomen: Soft Neuro Exam: Alert Skin: Warm, Dry Labs Laboratory Tests Test 11/05/20 12:30 11/06/20 00:30 11/06/20 09:30 11/06/20 12:45 White Blood Count 9.9 x10^3/uL (4.0-11.0) 15.5 x10^3/uL (4.0-11.0) Red Blood Count 4.28 x10^6/uL (4.30-5.70) 4.50 x10^6/uL (4.30-5.70) Hemoglobin 13.4 g/dL (13.0-17.5) 14.2 g/dL (13.0-17.5) Hematocrit 40.2 % (39.0-53.0) 42.4 % (39.0-53.0) Mean Corpuscular Volume 94 fL (79-100) 94 fL (79-100) Mean Corpuscular Hemoglobin 31 pg (25-35) 32 pg (25-35) Mean Corpuscular Hemoglobin Concent 33 g/dL (31-37) 33 g/dL (31-37) Red Cell Distribution Width 15.2 % (11.5-14.5) 14.9 % (11.5-14.5) Platelet Count 219 x10^3/uL (140-400) 245 x10^3/uL (140-400) Neutrophils (%) (Auto) 95 % (31-73) 96 % (31-73) Lymphocytes (%) (Auto) 2 % (24-48) 2 % (24-48) Monocytes (%) (Auto) 3 % (0-9) 2 % (0-9) Eosinophils (%) (Auto) 0 % (0-3) 0 % (0-3) Basophils (%) (Auto) 0 % (0-3) 0 % (0-3) Neutrophils # (Auto) 9.4 x10^3/uL (1.8-7.7) 14.8 x10^3/uL (1.8-7.7) Lymphocytes # (Auto) 0.2 x10^3/uL (1.0-4.8) 0.3 x10^3/uL (1.0-4.8) Monocytes # (Auto) 0.3 x10^3/uL (0.0-1.1) 0.4 x10^3/uL (0.0-1.1) Eosinophils # (Auto) 0.0 x10^3/uL (0.0-0.7) 0.0 x10^3/uL (0.0-0.7) Basophils # (Auto) 0.0 x10^3/uL (0.0-0.2) 0.0 x10^3/uL (0.0-0.2) Sodium Level 141 mmol/L (136-145) 142 mmol/L (136-145) Potassium Level 4.5 mmol/L (3.5-5.1) 4.5 mmol/L (3.5-5.1) Chloride Level 105 mmol/L (98-107) 105 mmol/L (98-107) Carbon Dioxide Level 32 mmol/L (21-32) 33 mmol/L (21-32) Anion Gap 4 (6-14) 4 (6-14) Blood Urea Nitrogen 34 mg/dL (8-26) 26 mg/dL (8-26) Creatinine 0.9 mg/dL (0.7-1.3) 0.9 mg/dL (0.7-1.3) Estimated GFR (Cockcroft-Gault) 80.2 80.2 BUN/Creatinine Ratio 38 (6-20) 29 (6-20) Glucose Level 137 mg/dL (70-99) 88 mg/dL (70-99) Calcium Level 8.6 mg/dL (8.5-10.1) 8.5 mg/dL (8.5-10.1) Total Bilirubin 1.2 mg/dL (0.2-1.0) 1.3 mg/dL (0.2-1.0) Aspartate Amino Transf (AST/SGOT) 12 U/L (15-37) 14 U/L (15-37) Alanine Aminotransferase (ALT/SGPT) 18 U/L (16-63) 26 U/L (16-63) Alkaline Phosphatase 60 U/L (46-116) 69 U/L (46-116) Total Protein 5.7 g/dL (6.4-8.2) 5.6 g/dL (6.4-8.2) Albumin 2.3 g/dL (3.4-5.0) 2.7 g/dL (3.4-5.0) Albumin/Globulin Ratio 0.7 (1.0-1.7) 0.9 (1.0-1.7) Urine Collection Type Unknown Urine Color Yellow Urine Clarity Clear Urine pH 5.5 (<5.0-8.0) Urine Specific [place] 1.020 (1.000-1.030) Urine Protein Negative mg/dL (NEG-TRACE) Urine Glucose (UA) Negative mg/dL (NEG) Urine Ketones (Stick) Negative mg/dL (NEG) Urine Blood Negative (NEG) Urine Nitrite Negative (NEG) Urine Bilirubin Negative (NEG) Urine Urobilinogen Dipstick 1.0 mg/dL (0.2 mg/dL) Urine Leukocyte Esterase Negative (NEG) Urine RBC Occ /HPF (0-2) Urine WBC 0 /HPF (0-4) Urine Squamous Epithelial Cells Occ /LPF Urine Bacteria 0 /HPF (0-FEW) Vancomycin Level Trough 7.4 mcg/mL (10.0-20.0) Vancomycin Last Dose Date 11/05/20 Vancomycin Last Dose Time 1000 Laboratory Tests Test 11/06/20 12:45 White Blood Count 15.5 x10^3/uL (4.0-11.0) Red Blood Count 4.50 x10^6/uL (4.30-5.70) Hemoglobin 14.2 g/dL (13.0-17.5) Hematocrit 42.4 % (39.0-53.0) Mean Corpuscular Volume 94 fL (79-100) Mean Corpuscular Hemoglobin 32 pg (25-35) Mean Corpuscular Hemoglobin Concent 33 g/dL (31-37) Red Cell Distribution Width 14.9 % (11.5-14.5) Platelet Count 245 x10^3/uL (140-400) Neutrophils (%) (Auto) 96 % (31-73) Lymphocytes (%) (Auto) 2 % (24-48) Monocytes (%) (Auto) 2 % (0-9) Eosinophils (%) (Auto) 0 % (0-3) Basophils (%) (Auto) 0 % (0-3) Neutrophils # (Auto) 14.8 x10^3/uL (1.8-7.7) Lymphocytes # (Auto) 0.3 x10^3/uL (1.0-4.8) Monocytes # (Auto) 0.4 x10^3/uL (0.0-1.1) Eosinophils # (Auto) 0.0 x10^3/uL (0.0-0.7) Basophils # (Auto) 0.0 x10^3/uL (0.0-0.2) Impression . IMPRESSION: 1. Acute hypoxemic respiratory failure, multifactorial. COVID-19 viral pneumonia. 2. Possible bacterial pneumonia. 3. Sepsis secondary to above. 4. Back pain. 5. Acute kidney injury. 6. Severe protein malnutrition, present upon admission. 7. Abnormal CT chest. Right lower lobe lobulated nodule appears to be concerning for cancer, left lower lobe infiltrate is more than likely related to COVID-19. Plan . PLAN: Continue supplemental oxygen to keep sats above 92%, currently on 2 liters NC Continue ABX with vanco and zosyn Continue remdesivir for full 5 day course Continue Dexamethasone with slow tpaer, will need full ten day course Continue zinc and thiamine Social work for DC planning DVT/GI PPX D/W RN Pt. is DNR ERIS BARILLAS MD Nov 07, 2020 10:33
[2020-11-07 10:56] LABS: BASO % 0 % (0-3); EOS % 0 % (0-3); HEMATOCRIT 41.2 % (39.0-53.0); HEMOGLOBIN 13.5 g/dL (13.0-17.5); LYMPH # 0.2 x10^3/uL (1.0-4.8); LYMPH % 2 % (24-48); MEAN CORPUSCULAR HEMOGLOBIN 31 pg (25-35); MEAN CORPUSCULAR HGB CONC 33 g/dL (31-37); MEAN CORPUSCULAR VOLUME 94 fL (79-100); MONO # 0.4 x10^3/uL (0.0-1.1); MONO % 4 % (0-9); NEUT # 11.2 x10^3/uL (1.8-7.7); NEUT % 94 % (31-73); PLATELET COUNT 278 x10^3/uL (140-400); RED BLOOD COUNT 4.39 x10^6/uL (4.30-5.70); RED CELL DISTRIBUTION WIDTH 14.5 % (11.5-14.5); WHITE BLOOD COUNT 11.9 x10^3/uL (4.0-11.0)
[2020-11-07 11:23] LABS: ALBUMIN 2.5 g/dL (3.4-5.0); ALBUMIN/GLOBULIN RATIO 0.8 (1.0-1.7); CALCIUM 8.1 mg/dL (8.5-10.1); CREATININE 0.8 mg/dL (0.7-1.3); GFR 91.9; POTASSIUM 4.1 mmol/L (3.5-5.1); TOTAL BILIRUBIN 1.2 mg/dL (0.2-1.0); TOTAL PROTEIN 5.6 g/dL (6.4-8.2)
--- NOTE | 2020-11-07 12:59 | NUR ---
SW following. Discussed with RN, family wanting DPOA paperwork because they want pt to go to SNF. There are no SNF options available for COVID-19 positive at this time. Per family pt wants to go home. Carmen DORMAN meeting with pt to determine if he wants to do DPOA paperwork, and if he is alert and oriented enough to make that decision. SW will continue to follow.
[2020-11-07] MEDS: REMDESIVIR 100mg in NORMAL SALINE 250ML X 4 DAYS IV SCH (14:00)
--- NOTE | 2020-11-07 16:30 | NUR ---
SS following up with discharge planning. Sandra BAEZ, requested assistance with DPOA paperwork. SS met with pt and discussed. Pt reported that he would want his son, Tay, to aid with medical decisions, but declined to sign healthcare DPOA at this time.
[2020-11-07] MEDS: ENOXAPARIN 40 MG/0.4 ML SYRINGE. SQ SCH (17:08)
[2020-11-07] MEDS: PATCH REMOVAL. MC SCH (20:01)
[2020-11-07] MEDS: MIRTAZAPINE 7.5 MG TABLET. PO SCH (21:14)
[2020-11-08 03:00] VITALS: BP 100/52
[2020-11-08] MEDS: AMINO AC 3%/ELECTROLYTE/GLYCER 1,000 ML IV SCH ×2 (03:16→20:30)
[2020-11-08] MEDS: PIPERACILLIN/TAZOBACTAM 3.375 GM in IV NORMAL SALINE 50ML 50 ML IV SCH ×4 (05:35→23:56)
[2020-11-08 07:00] VITALS: BP 110/80
[2020-11-08] MEDS: THIAMINE 100 MG TABLET. PO SCH (08:54)
[2020-11-08] MEDS: LACTOBACILLUS RHAMNOSUS GG 1 CAPSULE. PO SCH ×2 (08:55→20:30)
[2020-11-08] MEDS: ZINC SULFATE 220 MG CAPSULE. PO SCH (08:55)
[2020-11-08] MEDS: FLUTICASONE 50MCG/NASAL SPRAY 16GM BOTTLE. NS SCH (08:55)
[2020-11-08] MEDS: LIDOCAINE (700MG/PATCH) PATCH. TD SCH (08:55)
[2020-11-08] MEDS: DEXAMETHASONE SOD PHOS 4 MG/ML VIAL IVP SCH (08:55)
[2020-11-08] MEDS: VANCOMYCIN 750 MG in IV NORMAL SALINE 250ML 250 ML IV SCH (09:37)
[2020-11-08 10:06] LABS: BASO % 0 % (0-3); EOS # 0.1 x10^3/uL (0.0-0.7); EOS % 1 % (0-3); HEMATOCRIT 41.3 % (39.0-53.0); HEMOGLOBIN 13.8 g/dL (13.0-17.5); LYMPH # 0.6 x10^3/uL (1.0-4.8); LYMPH % 5 % (24-48); MEAN CORPUSCULAR HEMOGLOBIN 32 pg (25-35); MEAN CORPUSCULAR HGB CONC 33 g/dL (31-37); MEAN CORPUSCULAR VOLUME 94 fL (79-100); MONO # 0.7 x10^3/uL (0.0-1.1); MONO % 6 % (0-9); NEUT # 10.1 x10^3/uL (1.8-7.7); NEUT % 88 % (31-73); PLATELET COUNT 282 x10^3/uL (140-400); RED BLOOD COUNT 4.38 x10^6/uL (4.30-5.70); RED CELL DISTRIBUTION WIDTH 14.3 % (11.5-14.5); WHITE BLOOD COUNT 11.5 x10^3/uL (4.0-11.0)
[2020-11-08 10:16] LABS: ALBUMIN 2.3 g/dL (3.4-5.0); ALBUMIN/GLOBULIN RATIO 0.8 (1.0-1.7); CALCIUM 8.1 mg/dL (8.5-10.1); CREATININE 0.9 mg/dL (0.7-1.3); GFR 80.2; TOTAL BILIRUBIN 1.1 mg/dL (0.2-1.0); TOTAL PROTEIN 5.2 g/dL (6.4-8.2)
[2020-11-08 10:17] LABS: VANC TR 15.7 mcg/mL (10.0-20.0)
--- NOTE | 2020-11-08 10:45 | PDOC ---
[facility] PROGRESS NOTE Date of Service DOS: DATE: 11/08/20 TIME: 10:44 Chief Complaint Chief Complaint Acute respiratory failure with hypoxia - due to COVID 19 pneumonia and bilateral pneumonia Sepsis - IVF + antibiotics, though this is COVID 19 related. 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 tobacco use disorder History of Present Illness History of Present Illness 11/09/2019 Patient seen and examined Discussed with RN Chart reviewed Discussed with RN He is remains quite ill 11/07/2020 Patient seen and examined He is in bed eating breakfast Has O2 per nasal cannula On day 3 of remdesivir Discussed with RN Discussed with case management Chart reviewed 11/06/2020 Patient seen and examined Discussed with RN Chart reviewed Discussed with case management Patient is up on the commode (just sneezed has a lot of secretions I handed him a box of tissues) breathing OK notable weakness and poor PO intake still hypoxia, Vitals/I&O Vitals/I&O: Vital Signs Date Time Temp Pulse Resp B/P (MAP) Pulse Ox O2 Delivery O2 Flow Rate FiO2 11/08/20 07:00 96.4 66 18 110/80 (90) 91 Room Air 3.5 96.4 I & O 11/07/20 11/07/20 11/08/20 15:00 23:00 07:00 Intake Total 50 ml 1710 ml Balance 50 ml 1710 ml Physical Exam General: Cooperative, mild distress, Other (Cachectic appearing) Heart: Other (Tachycardic) Lungs: Crackles Abdomen: Normal bowel sounds, Soft, No tenderness, No hepatosplenomegaly, No masses Extremities: No clubbing, No cyanosis, No edema, Normal pulses, No tenderness/swelling Skin: No rashes, No breakdown, No significant lesion Labs Labs: Laboratory Tests Test 11/08/20 09:58 White Blood Count 11.5 x10^3/uL (4.0-11.0) Red Blood Count 4.38 x10^6/uL (4.30-5.70) Hemoglobin 13.8 g/dL (13.0-17.5) Hematocrit 41.3 % (39.0-53.0) Mean Corpuscular Volume 94 fL (79-100) Mean Corpuscular Hemoglobin 32 pg (25-35) Mean Corpuscular Hemoglobin Concent 33 g/dL (31-37) Red Cell Distribution Width 14.3 % (11.5-14.5) Platelet Count 282 x10^3/uL (140-400) Neutrophils (%) (Auto) 88 % (31-73) Lymphocytes (%) (Auto) 5 % (24-48) Monocytes (%) (Auto) 6 % (0-9) Eosinophils (%) (Auto) 1 % (0-3) Basophils (%) (Auto) 0 % (0-3) Neutrophils # (Auto) 10.1 x10^3/uL (1.8-7.7) Lymphocytes # (Auto) 0.6 x10^3/uL (1.0-4.8) Monocytes # (Auto) 0.7 x10^3/uL (0.0-1.1) Eosinophils # (Auto) 0.1 x10^3/uL (0.0-0.7) Basophils # (Auto) 0.0 x10^3/uL (0.0-0.2) Sodium Level 144 mmol/L (136-145) Potassium Level 4.0 mmol/L (3.5-5.1) Chloride Level 106 mmol/L (98-107) Carbon Dioxide Level 32 mmol/L (21-32) Anion Gap 6 (6-14) Blood Urea Nitrogen 21 mg/dL (8-26) Creatinine 0.9 mg/dL (0.7-1.3) Estimated GFR (Cockcroft-Gault) 80.2 BUN/Creatinine Ratio 23 (6-20) Glucose Level 103 mg/dL (70-99) Calcium Level 8.1 mg/dL (8.5-10.1) Total Bilirubin 1.1 mg/dL (0.2-1.0) Aspartate Amino Transf (AST/SGOT) 18 U/L (15-37) Alanine Aminotransferase (ALT/SGPT) 29 U/L (16-63) Alkaline Phosphatase 55 U/L (46-116) Total Protein 5.2 g/dL (6.4-8.2) Albumin 2.3 g/dL (3.4-5.0) Albumin/Globulin Ratio 0.8 (1.0-1.7) Vancomycin Level Trough 15.7 mcg/mL (10.0-20.0) Vancomycin Last Dose Date 11/07/20 Vancomycin Last Dose Time 2200 Assessment and Plan Assessmemt and Plan Problems Medical Problems: (1) Acute dyspnea Status: Acute (2) Multifocal pneumonia Status: Acute (3) Person under investigation for COVID-19 Status: Acute (4) Sepsis Status: Acute Acute respiratory failure with hypoxia - due to COVID 19 pneumonia and bilateral pneumonia Sepsis - IVF + antibiotics, though this is COVID 19 related. 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 Will consult pulm, will definitely need f/u outpatient tobacco use disorder, - Dr. Lomeli counseled on cessation Plan Covid protocol Remdesivir Zosyn vancomycin IV Respiratory isolation Home meds DVT prophylaxis Encourage p.o. intake O2 per nasal cannula PPN Zosyn Vanco and remdesivir Full code Appreciate subspecialist input Comment Review of Relevant I have reviewed the following items kaylah (where applicable) has been applied. Justifications for Admission Other Justification ELMER VELA III DO Nov 08, 2020 10:45
--- NOTE | 2020-11-08 10:47 | NUR ---
SW following. Discussed with RN, pt from home alone, 3L (does not use oxygen home), regular diet, COVID-19 positive. Pt did not want to sign the DPOA paperwork, and does not want to go to SNF. SW spoke with pt's son, Tay advised of the situation - he is going to speak to his sister. SW will continue to follow.
[2020-11-08 11:00] VITALS: BP 113/59
[2020-11-08] MEDS: VANCOMYCIN PER PHARMACY MC PRN (11:39)
--- NOTE | 2020-11-08 11:42 | NUR ---
Pharmacy Vancomycin Dosing Note S: Consulted to monitor and dose vancomycin started 11/04/20. O: ELIECER ALMARAZ is a 85 year old M with Sepsis, Pneumonia Other Antibiotics: ZOSYN LABS: Last BUN: 21 Last Creatinine: 0.9 Creatinine Clearance: 40.5 mL/min Last WBC: 11.5 Last Procalcitonin: Tmax (past 24 hours): 98.3 Microbiology: BLOOD: NGTD (AFTER 4 DAYS) I/O: 1750/- Drug Levels: Last Trough level: 15.7 on 11/08/20 at 0958 Last dose given 11/07/20 at 2114 Vancomycin Dosing: Dosing Weight: Actual Target Trough: 15-20 A: Based on: TROUGH P: 1. Continue Vancomycin 750 mg IV q12h 2. Follow up Trough level in 5 days if still receiving 3. Pharmacy will continue to monitor, follow and adjust therapy as needed. Mary Perez RPH, 11/08/20 [id number]
--- NOTE | 2020-11-08 13:18 | PDOC ---
PULMONARY PROGRESS NOTES DATE: 11/08/20 TIME: 13:18 Subjective pt. is resting on 2.5 liters NC afebrile reports some SOB, no increased cough no overnight events Vitals Vital Signs Date Time Temp Pulse Resp B/P (MAP) Pulse Ox O2 Delivery O2 Flow Rate FiO2 11/08/20 11:00 97.2 79 18 113/59 (77) 96 Nasal Cannula 3.5 97.2 ROS: No Nausea, No Chest Pain, No Abdominal Pain, No Increase Cough General: Alert, Oriented X4 Lungs: Crackles Cardiovascular: S1 Abdomen: Soft Neuro Exam: Alert Skin: Warm, Dry Labs Laboratory Tests Test 11/07/20 10:10 11/07/20 10:35 11/08/20 09:58 White Blood Count 11.9 x10^3/uL (4.0-11.0) 11.5 x10^3/uL (4.0-11.0) Red Blood Count 4.39 x10^6/uL (4.30-5.70) 4.38 x10^6/uL (4.30-5.70) Hemoglobin 13.5 g/dL (13.0-17.5) 13.8 g/dL (13.0-17.5) Hematocrit 41.2 % (39.0-53.0) 41.3 % (39.0-53.0) Mean Corpuscular Volume 94 fL (79-100) 94 fL (79-100) Mean Corpuscular Hemoglobin 31 pg (25-35) 32 pg (25-35) Mean Corpuscular Hemoglobin Concent 33 g/dL (31-37) 33 g/dL (31-37) Red Cell Distribution Width 14.5 % (11.5-14.5) 14.3 % (11.5-14.5) Platelet Count 278 x10^3/uL (140-400) 282 x10^3/uL (140-400) Neutrophils (%) (Auto) 94 % (31-73) 88 % (31-73) Lymphocytes (%) (Auto) 2 % (24-48) 5 % (24-48) Monocytes (%) (Auto) 4 % (0-9) 6 % (0-9) Eosinophils (%) (Auto) 0 % (0-3) 1 % (0-3) Basophils (%) (Auto) 0 % (0-3) 0 % (0-3) Neutrophils # (Auto) 11.2 x10^3/uL (1.8-7.7) 10.1 x10^3/uL (1.8-7.7) Lymphocytes # (Auto) 0.2 x10^3/uL (1.0-4.8) 0.6 x10^3/uL (1.0-4.8) Monocytes # (Auto) 0.4 x10^3/uL (0.0-1.1) 0.7 x10^3/uL (0.0-1.1) Eosinophils # (Auto) 0.0 x10^3/uL (0.0-0.7) 0.1 x10^3/uL (0.0-0.7) Basophils # (Auto) 0.0 x10^3/uL (0.0-0.2) 0.0 x10^3/uL (0.0-0.2) Sodium Level 142 mmol/L (136-145) 144 mmol/L (136-145) Potassium Level 4.1 mmol/L (3.5-5.1) 4.0 mmol/L (3.5-5.1) Chloride Level 106 mmol/L (98-107) 106 mmol/L (98-107) Carbon Dioxide Level 33 mmol/L (21-32) 32 mmol/L (21-32) Anion Gap 3 (6-14) 6 (6-14) Blood Urea Nitrogen 20 mg/dL (8-26) 21 mg/dL (8-26) Creatinine 0.8 mg/dL (0.7-1.3) 0.9 mg/dL (0.7-1.3) Estimated GFR (Cockcroft-Gault) 91.9 80.2 BUN/Creatinine Ratio 25 (6-20) 23 (6-20) Glucose Level 127 mg/dL (70-99) 103 mg/dL (70-99) Calcium Level 8.1 mg/dL (8.5-10.1) 8.1 mg/dL (8.5-10.1) Total Bilirubin 1.2 mg/dL (0.2-1.0) 1.1 mg/dL (0.2-1.0) Aspartate Amino Transf (AST/SGOT) 28 U/L (15-37) 18 U/L (15-37) Alanine Aminotransferase (ALT/SGPT) 37 U/L (16-63) 29 U/L (16-63) Alkaline Phosphatase 62 U/L (46-116) 55 U/L (46-116) Total Protein 5.6 g/dL (6.4-8.2) 5.2 g/dL (6.4-8.2) Albumin 2.5 g/dL (3.4-5.0) 2.3 g/dL (3.4-5.0) Albumin/Globulin Ratio 0.8 (1.0-1.7) 0.8 (1.0-1.7) Vancomycin Level Trough 15.7 mcg/mL (10.0-20.0) Vancomycin Last Dose Date 11/07/20 Vancomycin Last Dose Time 2200 Laboratory Tests Test 11/08/20 09:58 White Blood Count 11.5 x10^3/uL (4.0-11.0) Red Blood Count 4.38 x10^6/uL (4.30-5.70) Hemoglobin 13.8 g/dL (13.0-17.5) Hematocrit 41.3 % (39.0-53.0) Mean Corpuscular Volume 94 fL (79-100) Mean Corpuscular Hemoglobin 32 pg (25-35) Mean Corpuscular Hemoglobin Concent 33 g/dL (31-37) Red Cell Distribution Width 14.3 % (11.5-14.5) Platelet Count 282 x10^3/uL (140-400) Neutrophils (%) (Auto) 88 % (31-73) Lymphocytes (%) (Auto) 5 % (24-48) Monocytes (%) (Auto) 6 % (0-9) Eosinophils (%) (Auto) 1 % (0-3) Basophils (%) (Auto) 0 % (0-3) Neutrophils # (Auto) 10.1 x10^3/uL (1.8-7.7) Lymphocytes # (Auto) 0.6 x10^3/uL (1.0-4.8) Monocytes # (Auto) 0.7 x10^3/uL (0.0-1.1) Eosinophils # (Auto) 0.1 x10^3/uL (0.0-0.7) Basophils # (Auto) 0.0 x10^3/uL (0.0-0.2) Sodium Level 144 mmol/L (136-145) Potassium Level 4.0 mmol/L (3.5-5.1) Chloride Level 106 mmol/L (98-107) Carbon Dioxide Level 32 mmol/L (21-32) Anion Gap 6 (6-14) Blood Urea Nitrogen 21 mg/dL (8-26) Creatinine 0.9 mg/dL (0.7-1.3) Estimated GFR (Cockcroft-Gault) 80.2 BUN/Creatinine Ratio 23 (6-20) Glucose Level 103 mg/dL (70-99) Calcium Level 8.1 mg/dL (8.5-10.1) Total Bilirubin 1.1 mg/dL (0.2-1.0) Aspartate Amino Transf (AST/SGOT) 18 U/L (15-37) Alanine Aminotransferase (ALT/SGPT) 29 U/L (16-63) Alkaline Phosphatase 55 U/L (46-116) Total Protein 5.2 g/dL (6.4-8.2) Albumin 2.3 g/dL (3.4-5.0) Albumin/Globulin Ratio 0.8 (1.0-1.7) Vancomycin Level Trough 15.7 mcg/mL (10.0-20.0) Vancomycin Last Dose Date 11/07/20 Vancomycin Last Dose Time 2200 Impression . IMPRESSION: 1. Acute hypoxemic respiratory failure, multifactorial. COVID-19 viral pneumonia. 2. Possible bacterial pneumonia. 3. Sepsis secondary to above. 4. Back pain. 5. Acute kidney injury. 6. Severe protein malnutrition, present upon admission. 7. Abnormal CT chest. Right lower lobe lobulated nodule appears to be concerning for cancer, left lower lobe infiltrate is more than likely related to COVID-19. Plan . PLAN: Continue supplemental oxygen to keep sats above 92%, currently on 2.5 liters NC Continue ABX with zosyn and DC vanco Continue remdesivir for full 5 day course Continue Dexamethasone with slow tpaer, will need full ten day course Continue zinc and thiamine Continue PPN for nutritional support Social work for DC planning DVT/GI PPX D/W RN Pt. is DNR ERIS BARILLAS MD Nov 08, 2020 13:18
[2020-11-08] MEDS: REMDESIVIR 100mg in NORMAL SALINE 250ML X 4 DAYS IV SCH (13:57)
[2020-11-08 15:00] VITALS: BP 101/48
[2020-11-08] MEDS: ENOXAPARIN 40 MG/0.4 ML SYRINGE. SQ SCH (16:09)
[2020-11-08 20:00] VITALS: BP 135/78
[2020-11-08] MEDS: MIRTAZAPINE 7.5 MG TABLET. PO SCH (20:30)
[2020-11-08] MEDS: PATCH REMOVAL. MC SCH (20:30)
[2020-11-08 23:17] VITALS: BP 136/71
[2020-11-09 03:55] VITALS: BP 128/70
[2020-11-09 04:07] LABS: BASO % 0 % (0-3); EOS # 0.1 x10^3/uL (0.0-0.7); EOS % 1 % (0-3); HEMATOCRIT 39.9 % (39.0-53.0); HEMOGLOBIN 13.1 g/dL (13.0-17.5); LYMPH # 0.7 x10^3/uL (1.0-4.8); LYMPH % 6 % (24-48); MEAN CORPUSCULAR HEMOGLOBIN 31 pg (25-35); MEAN CORPUSCULAR HGB CONC 33 g/dL (31-37); MEAN CORPUSCULAR VOLUME 95 fL (79-100); MONO # 0.6 x10^3/uL (0.0-1.1); MONO % 5 % (0-9); NEUT # 10.1 x10^3/uL (1.8-7.7); NEUT % 87 % (31-73); PLATELET COUNT 299 x10^3/uL (140-400); RED BLOOD COUNT 4.21 x10^6/uL (4.30-5.70); RED CELL DISTRIBUTION WIDTH 14.8 % (11.5-14.5); WHITE BLOOD COUNT 11.6 x10^3/uL (4.0-11.0)
[2020-11-09 04:25] LABS: ALBUMIN 2.3 g/dL (3.4-5.0); ALBUMIN/GLOBULIN RATIO 0.8 (1.0-1.7); CALCIUM 7.9 mg/dL (8.5-10.1); CREATININE 0.8 mg/dL (0.7-1.3); GFR 91.9; POTASSIUM 4.2 mmol/L (3.5-5.1); TOTAL BILIRUBIN 0.8 mg/dL (0.2-1.0); TOTAL PROTEIN 5.2 g/dL (6.4-8.2)
[2020-11-09] MEDS: PIPERACILLIN/TAZOBACTAM 3.375 GM in IV NORMAL SALINE 50ML 50 ML IV SCH ×4 (06:11→23:37)
[2020-11-09] MEDS: AMINO AC 3%/ELECTROLYTE/GLYCER 1,000 ML IV SCH ×2 (06:15→23:37)
[2020-11-09 07:00] VITALS: BP 117/65
--- NOTE | 2020-11-09 08:33 | PDOC ---
PULMONARY PROGRESS NOTES DATE: 11/09/20 TIME: 08:33 Subjective pt. is resting on 3 liters NC afebrile no overnight events Vitals Vital Signs Date Time Temp Pulse Resp B/P (MAP) Pulse Ox O2 Delivery O2 Flow Rate FiO2 11/09/20 03:55 90 24 128/70 (89) 91 Nasal Cannula 3.0 11/08/20 23:17 98.2 98.2 ROS: No Nausea, No Chest Pain, No Abdominal Pain, No Increase Cough General: Alert, Oriented X4 Lungs: Crackles Cardiovascular: S1 Abdomen: Soft Neuro Exam: Alert Skin: Warm, Dry Labs Laboratory Tests Test 11/07/20 10:10 11/07/20 10:35 11/08/20 09:58 11/09/20 03:30 White Blood Count 11.9 x10^3/uL (4.0-11.0) 11.5 x10^3/uL (4.0-11.0) 11.6 x10^3/uL (4.0-11.0) Red Blood Count 4.39 x10^6/uL (4.30-5.70) 4.38 x10^6/uL (4.30-5.70) 4.21 x10^6/uL (4.30-5.70) Hemoglobin 13.5 g/dL (13.0-17.5) 13.8 g/dL (13.0-17.5) 13.1 g/dL (13.0-17.5) Hematocrit 41.2 % (39.0-53.0) 41.3 % (39.0-53.0) 39.9 % (39.0-53.0) Mean Corpuscular Volume 94 fL (79-100) 94 fL (79-100) 95 fL (79-100) Mean Corpuscular Hemoglobin 31 pg (25-35) 32 pg (25-35) 31 pg (25-35) Mean Corpuscular Hemoglobin Concent 33 g/dL (31-37) 33 g/dL (31-37) 33 g/dL (31-37) Red Cell Distribution Width 14.5 % (11.5-14.5) 14.3 % (11.5-14.5) 14.8 % (11.5-14.5) Platelet Count 278 x10^3/uL (140-400) 282 x10^3/uL (140-400) 299 x10^3/uL (140-400) Neutrophils (%) (Auto) 94 % (31-73) 88 % (31-73) 87 % (31-73) Lymphocytes (%) (Auto) 2 % (24-48) 5 % (24-48) 6 % (24-48) Monocytes (%) (Auto) 4 % (0-9) 6 % (0-9) 5 % (0-9) Eosinophils (%) (Auto) 0 % (0-3) 1 % (0-3) 1 % (0-3) Basophils (%) (Auto) 0 % (0-3) 0 % (0-3) 0 % (0-3) Neutrophils # (Auto) 11.2 x10^3/uL (1.8-7.7) 10.1 x10^3/uL (1.8-7.7) 10.1 x10^3/uL (1.8-7.7) Lymphocytes # (Auto) 0.2 x10^3/uL (1.0-4.8) 0.6 x10^3/uL (1.0-4.8) 0.7 x10^3/uL (1.0-4.8) Monocytes # (Auto) 0.4 x10^3/uL (0.0-1.1) 0.7 x10^3/uL (0.0-1.1) 0.6 x10^3/uL (0.0-1.1) Eosinophils # (Auto) 0.0 x10^3/uL (0.0-0.7) 0.1 x10^3/uL (0.0-0.7) 0.1 x10^3/uL (0.0-0.7) Basophils # (Auto) 0.0 x10^3/uL (0.0-0.2) 0.0 x10^3/uL (0.0-0.2) 0.0 x10^3/uL (0.0-0.2) Sodium Level 142 mmol/L (136-145) 144 mmol/L (136-145) 142 mmol/L (136-145) Potassium Level 4.1 mmol/L (3.5-5.1) 4.0 mmol/L (3.5-5.1) 4.2 mmol/L (3.5-5.1) Chloride Level 106 mmol/L (98-107) 106 mmol/L (98-107) 108 mmol/L (98-107) Carbon Dioxide Level 33 mmol/L (21-32) 32 mmol/L (21-32) 32 mmol/L (21-32) Anion Gap 3 (6-14) 6 (6-14) 2 (6-14) Blood Urea Nitrogen 20 mg/dL (8-26) 21 mg/dL (8-26) 18 mg/dL (8-26) Creatinine 0.8 mg/dL (0.7-1.3) 0.9 mg/dL (0.7-1.3) 0.8 mg/dL (0.7-1.3) Estimated GFR (Cockcroft-Gault) 91.9 80.2 91.9 BUN/Creatinine Ratio 25 (6-20) 23 (6-20) 23 (6-20) Glucose Level 127 mg/dL (70-99) 103 mg/dL (70-99) 101 mg/dL (70-99) Calcium Level 8.1 mg/dL (8.5-10.1) 8.1 mg/dL (8.5-10.1) 7.9 mg/dL (8.5-10.1) Total Bilirubin 1.2 mg/dL (0.2-1.0) 1.1 mg/dL (0.2-1.0) 0.8 mg/dL (0.2-1.0) Aspartate Amino Transf (AST/SGOT) 28 U/L (15-37) 18 U/L (15-37) 11 U/L (15-37) Alanine Aminotransferase (ALT/SGPT) 37 U/L (16-63) 29 U/L (16-63) 25 U/L (16-63) Alkaline Phosphatase 62 U/L (46-116) 55 U/L (46-116) 57 U/L (46-116) Total Protein 5.6 g/dL (6.4-8.2) 5.2 g/dL (6.4-8.2) 5.2 g/dL (6.4-8.2) Albumin 2.5 g/dL (3.4-5.0) 2.3 g/dL (3.4-5.0) 2.3 g/dL (3.4-5.0) Albumin/Globulin Ratio 0.8 (1.0-1.7) 0.8 (1.0-1.7) 0.8 (1.0-1.7) Vancomycin Level Trough 15.7 mcg/mL (10.0-20.0) Vancomycin Last Dose Date 11/07/20 Vancomycin Last Dose Time 2200 Laboratory Tests Test 11/08/20 09:58 11/09/20 03:30 White Blood Count 11.5 x10^3/uL (4.0-11.0) 11.6 x10^3/uL (4.0-11.0) Red Blood Count 4.38 x10^6/uL (4.30-5.70) 4.21 x10^6/uL (4.30-5.70) Hemoglobin 13.8 g/dL (13.0-17.5) 13.1 g/dL (13.0-17.5) Hematocrit 41.3 % (39.0-53.0) 39.9 % (39.0-53.0) Mean Corpuscular Volume 94 fL (79-100) 95 fL (79-100) Mean Corpuscular Hemoglobin 32 pg (25-35) 31 pg (25-35) Mean Corpuscular Hemoglobin Concent 33 g/dL (31-37) 33 g/dL (31-37) Red Cell Distribution Width 14.3 % (11.5-14.5) 14.8 % (11.5-14.5) Platelet Count 282 x10^3/uL (140-400) 299 x10^3/uL (140-400) Neutrophils (%) (Auto) 88 % (31-73) 87 % (31-73) Lymphocytes (%) (Auto) 5 % (24-48) 6 % (24-48) Monocytes (%) (Auto) 6 % (0-9) 5 % (0-9) Eosinophils (%) (Auto) 1 % (0-3) 1 % (0-3) Basophils (%) (Auto) 0 % (0-3) 0 % (0-3) Neutrophils # (Auto) 10.1 x10^3/uL (1.8-7.7) 10.1 x10^3/uL (1.8-7.7) Lymphocytes # (Auto) 0.6 x10^3/uL (1.0-4.8) 0.7 x10^3/uL (1.0-4.8) Monocytes # (Auto) 0.7 x10^3/uL (0.0-1.1) 0.6 x10^3/uL (0.0-1.1) Eosinophils # (Auto) 0.1 x10^3/uL (0.0-0.7) 0.1 x10^3/uL (0.0-0.7) Basophils # (Auto) 0.0 x10^3/uL (0.0-0.2) 0.0 x10^3/uL (0.0-0.2) Sodium Level 144 mmol/L (136-145) 142 mmol/L (136-145) Potassium Level 4.0 mmol/L (3.5-5.1) 4.2 mmol/L (3.5-5.1) Chloride Level 106 mmol/L (98-107) 108 mmol/L (98-107) Carbon Dioxide Level 32 mmol/L (21-32) 32 mmol/L (21-32) Anion Gap 6 (6-14) 2 (6-14) Blood Urea Nitrogen 21 mg/dL (8-26) 18 mg/dL (8-26) Creatinine 0.9 mg/dL (0.7-1.3) 0.8 mg/dL (0.7-1.3) Estimated GFR (Cockcroft-Gault) 80.2 91.9 BUN/Creatinine Ratio 23 (6-20) 23 (6-20) Glucose Level 103 mg/dL (70-99) 101 mg/dL (70-99) Calcium Level 8.1 mg/dL (8.5-10.1) 7.9 mg/dL (8.5-10.1) Total Bilirubin 1.1 mg/dL (0.2-1.0) 0.8 mg/dL (0.2-1.0) Aspartate Amino Transf (AST/SGOT) 18 U/L (15-37) 11 U/L (15-37) Alanine Aminotransferase (ALT/SGPT) 29 U/L (16-63) 25 U/L (16-63) Alkaline Phosphatase 55 U/L (46-116) 57 U/L (46-116) Total Protein 5.2 g/dL (6.4-8.2) 5.2 g/dL (6.4-8.2) Albumin 2.3 g/dL (3.4-5.0) 2.3 g/dL (3.4-5.0) Albumin/Globulin Ratio 0.8 (1.0-1.7) 0.8 (1.0-1.7) Vancomycin Level Trough 15.7 mcg/mL (10.0-20.0) Vancomycin Last Dose Date 11/07/20 Vancomycin Last Dose Time 2200 Impression . IMPRESSION: 1. Acute hypoxemic respiratory failure, multifactorial. COVID-19 viral pneumonia. 2. Possible bacterial pneumonia. 3. Sepsis secondary to above. 4. Back pain. 5. Acute kidney injury. 6. Severe protein malnutrition, present upon admission. 7. Abnormal CT chest. Right lower lobe lobulated nodule appears to be concerning for cancer, left lower lobe infiltrate is more than likely related to COVID-19. Plan . PLAN: Continue supplemental oxygen to keep sats above 92%, currently on 2.5 liters NC 6 min walk prior to discharge Continue ABX with zosyn S/P remdesivir f Continue Dexamethasone with slow taper, will need full ten day course Continue zinc and thiamine Social work for DC planning -- planned for home with home health DVT/GI PPX D/W RN Pt. is DNR ERIS BARILLAS MD Nov 09, 2020 08:33
[2020-11-09] MEDS: FLUTICASONE 50MCG/NASAL SPRAY 16GM BOTTLE. NS SCH (08:40)
[2020-11-09] MEDS: DEXAMETHASONE SOD PHOS 4 MG/ML VIAL IVP SCH (08:40)
[2020-11-09] MEDS: LIDOCAINE (700MG/PATCH) PATCH. TD SCH (08:40)
[2020-11-09] MEDS: ZINC SULFATE 220 MG CAPSULE. PO SCH (08:40)
[2020-11-09] MEDS: LACTOBACILLUS RHAMNOSUS GG 1 CAPSULE. PO SCH ×2 (08:40→21:19)
[2020-11-09] MEDS: THIAMINE 100 MG TABLET. PO SCH (08:40)
--- NOTE | 2020-11-09 10:02 | PDOC ---
[facility] [facility] PROGRESS NOTE Date of Service DOS: DATE: 11/09/20 TIME: 10:01 Chief Complaint Chief Complaint Acute respiratory failure with hypoxia - due to COVID 19 pneumonia and bilateral pneumonia Sepsis - IVF + antibiotics, though this is COVID 19 related. 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 tobacco use disorder History of Present Illness History of Present Illness 11/09/2020 Patient seen and examined He is on day 5 of remdesivir Discussed with RN Discussed with case management Chart reviewed We would like to get him to penitentiary but nobody will take Covid positive patients at this time 11/09/2019 Patient seen and examined Discussed with RN Chart reviewed Discussed with RN He is remains quite ill 11/07/2020 Patient seen and examined He is in bed eating breakfast Has O2 per nasal cannula On day 3 of remdesivir Discussed with RN Discussed with case management Chart reviewed 11/06/2020 Patient seen and examined Discussed with RN Chart reviewed Discussed with case management Patient is up on the commode (just sneezed has a lot of secretions I handed him a box of tissues) breathing OK notable weakness and poor PO intake still hypoxia, Vitals/I&O Vitals/I&O: Vital Signs Date Time Temp Pulse Resp B/P (MAP) Pulse Ox O2 Delivery O2 Flow Rate FiO2 11/09/20 07:00 96.9 85 18 117/65 (82) 98 Nasal Cannula 3.0 96.9 I & O 11/08/20 11/08/20 11/09/20 15:00 23:00 07:00 Intake Total 1000 ml 80 ml Output Total 600 ml Balance 1000 ml -520 ml Physical Exam General: Cooperative, mild distress, Other (Cachectic appearing) Heart: Other (Tachycardic) Lungs: Crackles Abdomen: Normal bowel sounds, Soft, No tenderness, No hepatosplenomegaly, No masses Extremities: No clubbing, No cyanosis, No edema, Normal pulses, No tenderness/swelling Skin: No rashes, No breakdown, No significant lesion Labs Labs: Laboratory Tests Test 11/09/20 03:30 White Blood Count 11.6 x10^3/uL (4.0-11.0) Red Blood Count 4.21 x10^6/uL (4.30-5.70) Hemoglobin 13.1 g/dL (13.0-17.5) Hematocrit 39.9 % (39.0-53.0) Mean Corpuscular Volume 95 fL (79-100) Mean Corpuscular Hemoglobin 31 pg (25-35) Mean Corpuscular Hemoglobin Concent 33 g/dL (31-37) Red Cell Distribution Width 14.8 % (11.5-14.5) Platelet Count 299 x10^3/uL (140-400) Neutrophils (%) (Auto) 87 % (31-73) Lymphocytes (%) (Auto) 6 % (24-48) Monocytes (%) (Auto) 5 % (0-9) Eosinophils (%) (Auto) 1 % (0-3) Basophils (%) (Auto) 0 % (0-3) Neutrophils # (Auto) 10.1 x10^3/uL (1.8-7.7) Lymphocytes # (Auto) 0.7 x10^3/uL (1.0-4.8) Monocytes # (Auto) 0.6 x10^3/uL (0.0-1.1) Eosinophils # (Auto) 0.1 x10^3/uL (0.0-0.7) Basophils # (Auto) 0.0 x10^3/uL (0.0-0.2) Sodium Level 142 mmol/L (136-145) Potassium Level 4.2 mmol/L (3.5-5.1) Chloride Level 108 mmol/L (98-107) Carbon Dioxide Level 32 mmol/L (21-32) Anion Gap 2 (6-14) Blood Urea Nitrogen 18 mg/dL (8-26) Creatinine 0.8 mg/dL (0.7-1.3) Estimated GFR (Cockcroft-Gault) 91.9 BUN/Creatinine Ratio 23 (6-20) Glucose Level 101 mg/dL (70-99) Calcium Level 7.9 mg/dL (8.5-10.1) Total Bilirubin 0.8 mg/dL (0.2-1.0) Aspartate Amino Transf (AST/SGOT) 11 U/L (15-37) Alanine Aminotransferase (ALT/SGPT) 25 U/L (16-63) Alkaline Phosphatase 57 U/L (46-116) Total Protein 5.2 g/dL (6.4-8.2) Albumin 2.3 g/dL (3.4-5.0) Albumin/Globulin Ratio 0.8 (1.0-1.7) Assessment and Plan Assessmemt and Plan Problems Medical Problems: (1) Acute dyspnea Status: Acute (2) Multifocal pneumonia Status: Acute (3) Person under investigation for COVID-19 Status: Acute (4) Sepsis Status: Acute respiratory failure with hypoxia - due to COVID 19 pneumonia and bilateral pneumonia Sepsis - Back painL2 compression fracture - chronic pain and weakness, with recent falls CAROL - vasomotor nephropathy from poor PO intake, acute sepsis syndrome Elevated bilirubin - malnutrition, and infection Mild protein calorie malnutrition Right lung mass on CT tobacco use disorder Plan Covid protocol Remdesivir (today is day 5) Zosyn vancomycin IV Respiratory isolation Home meds DVT prophylaxis Encourage p.o. intake O2 per nasal cannula PPN Zosyn Vanco and remdesivir Full code Appreciate subspecialist input We would like to get him to penitentiary but no one will take Covid positive patients at this time Per pulmonary recommendations please see the following and I agree; Continue supplemental oxygen to keep sats above 92%, currently on 2.5 liters NC Continue ABX with zosyn and DC vanco Continue remdesivir for full 5 day course Continue Dexamethasone with slow tpaer, will need full ten day course Continue zinc and thiamine Continue PPN for nutritional support Social work for DC planning DVT/GI PPX D/W RN Comment Review of Relevant I have reviewed the following items kaylah (where applicable) has been applied. Justifications for Admission Other Justification ELMER VELA III DO Nov 09, 2020 10:01
[2020-11-09 11:00] VITALS: BP 98/48
--- NOTE | 2020-11-09 14:34 | NUR ---
SW following. Discussed with RN, SASHA spoke with pt via phone, pt feeling about the same, agreeable to SNF if his family is absolutely wanting him to, pt gave verbal consent to SASHA to have family decide on discharge plan. SASHA spoke with pt's son, Tay - he is aware pt could potentially have to sit here for another 10 days waiting to be cleared from COVID for a facility to accept. Tay thinks pt should come home and would like home health to come out and work with pt at home and potentially assist with medicaid application and possibly placing pt in SNF from home. Pt will need a 6 minute walk prior to discharge. Pt's son is anticipating discharge home tomorrow. Tay agreeable to [facility] as they are seeing COVID-19 positive, and have respiratory therapy. RN notified. Luisito Madden RN notified. Choice of vendor form completed. Pt added to weekend discharge list. SASHA will continue to follow. Addendum: 11/09/20 at 1557 by MARYLU BAEZ Pt accepted with [facility]. RN notified. Addendum: 11/09/20 at 1602 by MARYLU BAEZ Pt accepted with [facility]. Likely will need 6 minute walk prior to discharge.
[2020-11-09 15:00] VITALS: BP 106/50
[2020-11-09] MEDS: ENOXAPARIN 40 MG/0.4 ML SYRINGE. SQ SCH (16:28)
[2020-11-09 19:00] VITALS: BP 97/51
[2020-11-09] MEDS: PATCH REMOVAL. MC SCH (21:00)
[2020-11-09] MEDS: MIRTAZAPINE 7.5 MG TABLET. PO SCH (21:19)
[2020-11-09] MEDS: traMADol 50 MG TABLET PO PRN (21:19)
[2020-11-09 23:00] VITALS: BP 93/56
[2020-11-10 03:00] VITALS: BP 143/64
[2020-11-10] MEDS: PIPERACILLIN/TAZOBACTAM 3.375 GM in IV NORMAL SALINE 50ML 50 ML IV SCH ×4 (06:00→23:54)
[2020-11-10 07:00] VITALS: BP 154/64
[2020-11-10] MEDS: AMINO AC 3%/ELECTROLYTE/GLYCER 1,000 ML IV SCH ×2 (07:15→20:32)
--- NOTE | 2020-11-10 07:42 | PDOC ---
PULMONARY PROGRESS NOTES DATE: 11/10/20 TIME: 07:40 Subjective on 02 2 liters NC not on home 02 denies sob has occ cough Vitals Vital Signs Date Time Temp Pulse Resp B/P (MAP) Pulse Ox O2 Delivery O2 Flow Rate FiO2 11/10/20 03:00 98.0 80 18 143/64 (90) 99 Nasal Cannula 2.0 98.0 ROS: No Nausea, No Chest Pain, No Abdominal Pain, No Increase Cough General: Alert, Oriented X4 Lungs: Crackles Cardiovascular: S1, S2 Abdomen: Soft, Non-tender Neuro Exam: Alert Extremities: No Edema Skin: Warm, Dry Labs Laboratory Tests Test 11/08/20 09:58 11/09/20 03:30 White Blood Count 11.5 x10^3/uL (4.0-11.0) 11.6 x10^3/uL (4.0-11.0) Red Blood Count 4.38 x10^6/uL (4.30-5.70) 4.21 x10^6/uL (4.30-5.70) Hemoglobin 13.8 g/dL (13.0-17.5) 13.1 g/dL (13.0-17.5) Hematocrit 41.3 % (39.0-53.0) 39.9 % (39.0-53.0) Mean Corpuscular Volume 94 fL (79-100) 95 fL (79-100) Mean Corpuscular Hemoglobin 32 pg (25-35) 31 pg (25-35) Mean Corpuscular Hemoglobin Concent 33 g/dL (31-37) 33 g/dL (31-37) Red Cell Distribution Width 14.3 % (11.5-14.5) 14.8 % (11.5-14.5) Platelet Count 282 x10^3/uL (140-400) 299 x10^3/uL (140-400) Neutrophils (%) (Auto) 88 % (31-73) 87 % (31-73) Lymphocytes (%) (Auto) 5 % (24-48) 6 % (24-48) Monocytes (%) (Auto) 6 % (0-9) 5 % (0-9) Eosinophils (%) (Auto) 1 % (0-3) 1 % (0-3) Basophils (%) (Auto) 0 % (0-3) 0 % (0-3) Neutrophils # (Auto) 10.1 x10^3/uL (1.8-7.7) 10.1 x10^3/uL (1.8-7.7) Lymphocytes # (Auto) 0.6 x10^3/uL (1.0-4.8) 0.7 x10^3/uL (1.0-4.8) Monocytes # (Auto) 0.7 x10^3/uL (0.0-1.1) 0.6 x10^3/uL (0.0-1.1) Eosinophils # (Auto) 0.1 x10^3/uL (0.0-0.7) 0.1 x10^3/uL (0.0-0.7) Basophils # (Auto) 0.0 x10^3/uL (0.0-0.2) 0.0 x10^3/uL (0.0-0.2) Sodium Level 144 mmol/L (136-145) 142 mmol/L (136-145) Potassium Level 4.0 mmol/L (3.5-5.1) 4.2 mmol/L (3.5-5.1) Chloride Level 106 mmol/L (98-107) 108 mmol/L (98-107) Carbon Dioxide Level 32 mmol/L (21-32) 32 mmol/L (21-32) Anion Gap 6 (6-14) 2 (6-14) Blood Urea Nitrogen 21 mg/dL (8-26) 18 mg/dL (8-26) Creatinine 0.9 mg/dL (0.7-1.3) 0.8 mg/dL (0.7-1.3) Estimated GFR (Cockcroft-Gault) 80.2 91.9 BUN/Creatinine Ratio 23 (6-20) 23 (6-20) Glucose Level 103 mg/dL (70-99) 101 mg/dL (70-99) Calcium Level 8.1 mg/dL (8.5-10.1) 7.9 mg/dL (8.5-10.1) Total Bilirubin 1.1 mg/dL (0.2-1.0) 0.8 mg/dL (0.2-1.0) Aspartate Amino Transf (AST/SGOT) 18 U/L (15-37) 11 U/L (15-37) Alanine Aminotransferase (ALT/SGPT) 29 U/L (16-63) 25 U/L (16-63) Alkaline Phosphatase 55 U/L (46-116) 57 U/L (46-116) Total Protein 5.2 g/dL (6.4-8.2) 5.2 g/dL (6.4-8.2) Albumin 2.3 g/dL (3.4-5.0) 2.3 g/dL (3.4-5.0) Albumin/Globulin Ratio 0.8 (1.0-1.7) 0.8 (1.0-1.7) Vancomycin Level Trough 15.7 mcg/mL (10.0-20.0) Vancomycin Last Dose Date 11/07/20 Vancomycin Last Dose Time 2200 Impression . IMPRESSION: 1. Acute hypoxemic respiratory failure, multifactorial. COVID-19 viral pneumonia. 2. Possible bacterial pneumonia. 3. Sepsis secondary to above. 4. Back pain. 5. Acute kidney injury. 6. Severe protein malnutrition, present upon admission. 7. Abnormal CT chest. Right lower lobe lobulated nodule appears to be concerning for cancer, left lower lobe infiltrate is more than likely related to COVID-19. Plan . PLAN: titrate fio2 to keep sat 90%, 6 min walk at dc fu ct in 4-6 wks and fu w dr robinson kline after ct done zosyn day #7 dc after today dose S/P remdesivir Continue Dexamethasone with slow taper, will need full ten day course Continue zinc and thiamine Social work for DC planning -- planned for home with home health DVT/GI PPX D/W RN Pt. is DNR TANA APARICIO MD Nov 10, 2020 07:42
[2020-11-10] MEDS: LIDOCAINE (700MG/PATCH) PATCH. TD SCH (08:22)
[2020-11-10] MEDS: ZINC SULFATE 220 MG CAPSULE. PO SCH (08:22)
[2020-11-10] MEDS: FLUTICASONE 50MCG/NASAL SPRAY 16GM BOTTLE. NS SCH (08:22)
[2020-11-10] MEDS: traMADol 50 MG TABLET PO PRN ×2 (08:23→20:32)
[2020-11-10] MEDS: THIAMINE 100 MG TABLET. PO SCH (08:23)
[2020-11-10] MEDS: LACTOBACILLUS RHAMNOSUS GG 1 CAPSULE. PO SCH ×2 (08:23→20:32)
[2020-11-10 11:00] VITALS: BP 109/53
--- NOTE | 2020-11-10 11:39 | PDOC ---
[facility] [facility] PROGRESS NOTE Date of Service DOS: DATE: 11/10/20 TIME: 11:39 Chief Complaint Chief Complaint Acute respiratory failure with hypoxia - due to COVID 19 pneumonia and bilateral pneumonia Sepsis - IVF + antibiotics, though this is COVID 19 related. 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 tobacco use disorder History of Present Illness History of Present Illness 11/10/2020 Patient seen and examined Discussed with RN Chart reviewed He completed day 5 of remdesivir yesterday We are now waiting for him to get strong enough to go home as he cannot go to longterm due to Covid 11/09/2020 Patient seen and examined He is on day 5 of remdesivir Discussed with RN Discussed with case management Chart reviewed We would like to get him to longterm but nobody will take Covid positive patients at this time 11/09/2019 Patient seen and examined Discussed with RN Chart reviewed Discussed with RN He is remains quite ill 11/07/2020 Patient seen and examined He is in bed eating breakfast Has O2 per nasal cannula On day 3 of remdesivir Discussed with RN Discussed with case management Chart reviewed 11/06/2020 Patient seen and examined Discussed with RN Chart reviewed Discussed with case management Patient is up on the commode (just sneezed has a lot of secretions I handed him a box of tissues) breathing OK notable weakness and poor PO intake still hypoxia, Vitals/I&O Vitals/I&O: Vital Signs Date Time Temp Pulse Resp B/P (MAP) Pulse Ox O2 Delivery O2 Flow Rate FiO2 11/10/20 11:00 96.3 91 20 109/53 (71) 99 Nasal Cannula 3.0 96.3 I & O 11/09/20 11/09/20 11/10/20 15:00 23:00 07:00 Intake Total 200 ml Output Total 400 ml Balance -200 ml Physical Exam General: Cooperative, mild distress, Other (Cachectic appearing) Heart: Other (Tachycardic) Lungs: Crackles Abdomen: Normal bowel sounds, Soft, No tenderness, No hepatosplenomegaly, No masses Extremities: No clubbing, No cyanosis, No edema, Normal pulses, No tend erness/swelling Skin: No rashes, No breakdown, No significant lesion Assessment and Plan Assessmemt and Plan Problems Medical Problems: (1) Acute dyspnea Status: Acute (2) Multifocal pneumonia Status: Acute (3) Person under investigation for COVID-19 Status: Acute (4) Sepsis Status: Acut Acute respiratory failure with hypoxia - due to COVID 19 pneumonia and bilateral pneumonia Sepsis - Back painL2 compression fracture - chronic pain and weakness, with recent falls CAROL - vasomotor nephropathy from poor PO intake, acute sepsis syndrome Elevated bilirubin - malnutrition, and infection Mild protein calorie malnutrition Right lung mass on CT tobacco use disorder Plan He has completed most of the Covid protocol Remdesivir has been completed yesterday Respiratory isolation Home meds DVT prophylaxis Encourage p.o. intake O2 per nasal cannula PPN Nicholas Graham Full code Appreciate subspecialist input We would like to get him to longterm but no one will take Covid positive patients at this time He will have to stay here and do physical therapy occupational therapy and still is stronger to go home Per pulmonary please see the following recommendations and I agree; IMPRESSION: 1. Acute hypoxemic respiratory failure, multifactorial. COVID-19 viral pneumonia. 2. Possible bacterial pneumonia. 3. Sepsis secondary to above. 4. Back pain. 5. Acute kidney injury. 6. Severe protein malnutrition, present upon admission. 7. Abnormal CT chest. Right lower lobe lobulated nodule appears to be concerning for cancer, left lower lobe infiltrate is more than likely related to COVID-19. Plan Plan . PLAN: titrate fio2 to keep sat 90%, 6 min walk at dc fu ct in 4-6 wks and fu w dr robinson kline after ct done nicholas day #7 dc after today dose S/P remdesivir Continue Dexamethasone with slow taper, will need full ten day course Continue zinc and thiamine Social work for DC planning -- planned for home with home health DVT/GI PPX Comment Review of Relevant I have reviewed the following items kaylah (where applicable) has been applied. Justifications for Admission Other Justification ELMER VELA III, DO Nov 10, 2020 11:39
[2020-11-10] MEDS: DEXAMETHASONE SOD PHOS 4 MG/ML VIAL IVP SCH (13:34)
[2020-11-10 15:00] VITALS: BP 132/89
[2020-11-10] MEDS: ENOXAPARIN 40 MG/0.4 ML SYRINGE. SQ SCH (17:32)
[2020-11-10 19:56] VITALS: BP 106/44
[2020-11-10] MEDS: MIRTAZAPINE 7.5 MG TABLET. PO SCH (20:32)
[2020-11-10] MEDS: PATCH REMOVAL. MC SCH (21:00)
[2020-11-10 23:50] VITALS: BP 140/55
[2020-11-11 03:44] VITALS: BP 115/53
[2020-11-11] MEDS: PIPERACILLIN/TAZOBACTAM 3.375 GM in IV NORMAL SALINE 50ML 50 ML IV SCH (05:57)
[2020-11-11 07:00] VITALS: BP 121/62
--- NOTE | 2020-11-11 07:42 | PDOC ---
PULMONARY PROGRESS NOTES DATE: 11/11/20 TIME: 07:41 Subjective on 02 2 liters NC not on home 02 feels better has occ cough Vitals Vital Signs Date Time Temp Pulse Resp B/P (MAP) Pulse Ox O2 Delivery O2 Flow Rate FiO2 11/11/20 07:00 97.6 78 20 121/62 (81) 99 Nasal Cannula 3.0 97.6 ROS: No Nausea, No Chest Pain, No Abdominal Pain, No Increase Cough General: Alert, Oriented X4 Lungs: Crackles Cardiovascular: S1, S2 Abdomen: Soft, Non-tender Neuro Exam: Alert Extremities: No Edema Skin: Warm, Dry Impression . IMPRESSION: 1. Acute hypoxemic respiratory failure, multifactorial. COVID-19 viral pneumonia. 2. Possible bacterial pneumonia. 3. Sepsis secondary to above. 4. Back pain. 5. Acute kidney injury. 6. Severe protein malnutrition, present upon admission. 7. Abnormal CT chest. Right lower lobe lobulated nodule appears to be concerning for cancer, left lower lobe infiltrate is more than likely related to COVID-19. Plan . PLAN: titrate fio2 to keep sat 90%, 6 min walk at dc ct reviewed, fu ct in 4-6 wks and fu w dr robinson kline after ct done zosyn day #7 dc today monitor off abx S/P remdesivir Continue Dexamethasone with slow taper, will need full ten day course Continue zinc and thiamine Social work for DC planning -- planned for home with home health DVT/GI PPX D/W RN Pt. is DNR TANA APARICIO MD Nov 11, 2020 07:42
[2020-11-11] MEDS: FLUTICASONE 50MCG/NASAL SPRAY 16GM BOTTLE. NS SCH (09:00)
[2020-11-11] MEDS: AMINO AC 3%/ELECTROLYTE/GLYCER 1,000 ML IV SCH ×2 (09:36→20:59)
[2020-11-11] MEDS: THIAMINE 100 MG TABLET. PO SCH (09:36)
[2020-11-11] MEDS: DEXAMETHASONE SOD PHOS 4 MG/ML VIAL IVP SCH (09:36)
[2020-11-11] MEDS: LACTOBACILLUS RHAMNOSUS GG 1 CAPSULE. PO SCH ×2 (09:37→21:00)
[2020-11-11] MEDS: ZINC SULFATE 220 MG CAPSULE. PO SCH (09:37)
[2020-11-11] MEDS: LIDOCAINE (700MG/PATCH) PATCH. TD SCH (09:37)
[2020-11-11 11:00] VITALS: BP 129/51
--- NOTE | 2020-11-11 13:22 | PDOC ---
[facility] [facility] PROGRESS NOTE Date of Service DOS: DATE: 11/11/20 TIME: 13:21 Chief Complaint Chief Complaint Resolving COVID-19 infection Acute respiratory failure with hypoxia - due to COVID 19 pneumonia and bilateral pneumonia Sepsis - IVF + antibiotics, though this is COVID 19 related. 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 tobacco use disorder History of Present Illness History of Present Illness 11/11/2020 Patient seen and examined Clinically about the same as yesterday Little short of breath Little confused Chart reviewed Discussed with RN 11/10/2020 Patient seen and examined Discussed with RN Chart reviewed He completed day 5 of remdesivir yesterday We are now waiting for him to get strong enough to go home as he cannot go to half-way due to Covid 11/09/2020 Patient seen and examined He is on day 5 of remdesivir Discussed with RN Discussed with case management Chart reviewed We would like to get him to half-way but nobody will take Covid positive patients at this time 11/09/2019 Patient seen and examined Discussed with RN Chart reviewed Discussed with RN He is remains quite ill 11/07/2020 Patient seen and examined He is in bed eating breakfast Has O2 per nasal cannula On day 3 of remdesivir Discussed with RN Discussed with case management Chart reviewed 11/06/2020 Patient seen and examined Discussed with RN Chart reviewed Discussed with case management Patient is up on the commode (just sneezed has a lot of secretions I handed him a box of tissues) breathing OK notable weakness and poor PO intake still hypoxia, Vitals/I&O Vitals/I&O: Vital Signs Date Time Temp Pulse Resp B/P (MAP) Pulse Ox O2 Delivery O2 Flow Rate FiO2 11/11/20 11:00 98.1 88 22 129/51 (77) 96 Nasal Cannula 3.0 98.1 I & O 11/10/20 11/10/20 11/11/20 15:00 23:00 07:00 Intake Total 240 ml 480 ml Output Total 300 ml Balance 240 ml 180 ml Physical Exam General: Cooperative, mild distress, Other (Cachectic appearing) Heart: Other (Tachycardic) Lungs: Crackles Abdomen: Normal bowel sounds, Soft, No tenderness, No hepatosplenomegaly, No masses Extremities: No clubbing, No cyanosis, No edema, Normal pulses, No tenderness/swelling Skin: No rashes, No breakdown, No significant lesion Assessment and Plan Assessmemt and Plan Problems Medical Problems: (1) Acute dyspnea Status: Acute (2) Multifocal pneumonia Status: Acute (3) Person under investigation for COVID-19 Status: Acute (4) Sepsis Status: Acute Acute respiratory failure with hypoxia - due to COVID 19 pneumonia and bilateral pneumonia Sepsis - Back painL2 compression fracture - chronic pain and weakness, with recent f alls CAROL - vasomotor nephropathy from poor PO intake, acute sepsis syndrome Elevated bilirubin - malnutrition, and infection Mild protein calorie malnutrition Right lung mass on CT tobacco use disorder Plan He has completed most of the Covid protocol Remdesivir has been completed yesterday Respiratory isolation Home meds DVT prophylaxis Encourage p.o. intake O2 per nasal cannula PPN Lon Graham Full code Appreciate subspecialist input We would like to get him to half-way but no one will take Covid positive patients at this time He will have to stay here and do physical therapy occupational therapy and still is stronger to go home Comment Review of Relevant I have reviewed the following items kaylah (where applicable) has been applied. Justifications for Admission Other Justification ELMER VELA III, DO Nov 11, 2020 13:22
[2020-11-11 15:00] VITALS: BP 131/55
[2020-11-11] MEDS: ENOXAPARIN 40 MG/0.4 ML SYRINGE. SQ SCH (16:13)
[2020-11-11 19:00] VITALS: BP 122/50
[2020-11-11] MEDS: MIRTAZAPINE 7.5 MG TABLET. PO SCH (20:59)
[2020-11-11] MEDS: PATCH REMOVAL. MC SCH (21:00)
[2020-11-11 23:03] VITALS: BP 137/47
[2020-11-12 02:55] VITALS: BP 148/64
[2020-11-12 07:30] VITALS: BP 145/56
[2020-11-12] MEDS: ZINC SULFATE 220 MG CAPSULE. PO SCH (09:31)
[2020-11-12] MEDS: THIAMINE 100 MG TABLET. PO SCH (09:31)
[2020-11-12] MEDS: LACTOBACILLUS RHAMNOSUS GG 1 CAPSULE. PO SCH ×2 (09:31→19:57)
[2020-11-12] MEDS: DEXAMETHASONE SOD PHOS 4 MG/ML VIAL IVP SCH (09:31)
[2020-11-12] MEDS: LIDOCAINE (700MG/PATCH) PATCH. TD SCH (09:32)
[2020-11-12] MEDS: FLUTICASONE 50MCG/NASAL SPRAY 16GM BOTTLE. NS SCH (09:32)
--- NOTE | 2020-11-12 09:45 | PDOC ---
PULMONARY PROGRESS NOTES DATE: 11/12/20 TIME: 09:45 Subjective Remains on NC oxygen SOB with exertion no overnight events remains very weak Vitals Vital Signs Date Time Temp Pulse Resp B/P (MAP) Pulse Ox O2 Delivery O2 Flow Rate FiO2 11/12/20 07:30 Nasal Cannula 2.0 11/12/20 07:30 97.1 92 20 145/56 (85) 95 97.1 ROS: No Nausea, No Chest Pain, No Abdominal Pain, No Increase Cough General: Alert, Oriented X4 Lungs: Crackles Cardiovascular: S1, S2 Abdomen: Soft, Non-tender Neuro Exam: Alert Extremities: No Edema Skin: Warm, Dry Impression . IMPRESSION: 1. Acute hypoxemic respiratory failure, multifactorial. COVID-19 viral pneumonia. 2. Possible bacterial pneumonia. 3. Sepsis secondary to above. 4. Back pain. 5. Acute kidney injury. 6. Severe protein malnutrition, present upon admission. 7. Abnormal CT chest. Right lower lobe lobulated nodule appears to be concerning for cancer, left lower lobe infiltrate is more than likely related to COVID-19. Plan . PLAN: Continue supplemental oxygen CT reviewed Follow in office with CT in 4-6 weeks Off ABX S/P remdesivir Continue Dexamethasone with slow taper, will need full ten day course (day #9) Continue zinc and thiamine Social work for DC planning DVT/GI PPX D/W RN Pt. is DNR ERIS BARILLAS MD Nov 12, 2020 09:45
[2020-11-12] MEDS: AMINO AC 3%/ELECTROLYTE/GLYCER 1,000 ML IV SCH ×2 (10:24→19:58)
[2020-11-12 11:00] VITALS: BP 122/55
--- NOTE | 2020-11-12 11:41 | PDOC ---
[employer] PROGRESS NOTE Date of Service DOS: DATE: 11/12/20 TIME: 11:39 Chief Complaint Chief Complaint Resolving COVID-19 infection Acute respiratory failure with hypoxia - due to COVID 19 pneumonia and bilateral pneumonia Sepsis - IVF + antibiotics, though this is COVID 19 related. 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 tobacco use disorder History of Present Illness History of Present Illness 11/12/2020 Patient seen and examined He is extremely weak and still short of breath On O2 per nasal cannula Discussed with RN Discussed with case management Chart reviewed 11/11/2020 Patient seen and examined Clinically about the same as yesterday Little short of breath Little confused Chart reviewed Discussed with RN 11/10/2020 Patient seen and examined Discussed with RN Chart reviewed He completed day 5 of remdesivir yesterday We are now waiting for him to get strong enough to go home as he cannot go to halfway due to Covid 11/09/2020 Patient seen and examined He is on day 5 of remdesivir Discussed with RN Discussed with case management Chart reviewed We would like to get him to halfway but nobody will take Covid positive patients at this time 11/09/2019 Patient seen and examined Discussed with RN Chart reviewed Discussed with RN He is remains quite ill 11/07/2020 Patient seen and examined He is in bed eating breakfast Has O2 per nasal cannula On day 3 of remdesivir Discussed with RN Discussed with case management Chart reviewed 11/06/2020 Patient seen and examined Discussed with RN Chart reviewed Discussed with case management Patient is up on the commode (just sneezed has a lot of secretions I handed him a box of tissues) breathing OK notable weakness and poor PO intake still hypoxia, Vitals/I&O Vitals/I&O: Vital Signs Date Time Temp Pulse Resp B/P (MAP) Pulse Ox O2 Delivery O2 Flow Rate FiO2 11/12/20 07:30 Nasal Cannula 2.0 11/12/20 07:30 97.1 92 20 145/56 (85) 95 97.1 I & O 11/11/20 11/11/20 11/12/20 15:00 23:00 07:00 Intake Total 220 ml 950 ml 200 ml Output Total 875 ml 1000 ml Balance -655 ml 950 ml -800 ml Physical Exam General: Cooperative, mild distress, Other (Cachectic appearing) Heart: Other (Tachycardic) Lungs: Crackles Abdomen: Normal bowel sounds, Soft, No tenderness, No hepatosplenomegaly, No masses Extremities: No clubbing, No cyanosis, No edema, Normal pulses, No tenderness/swelling Skin: No rashes, No breakdown, No significant lesion Assessment and Plan Assessmemt and Plan Problems Medical Problems: (1) Acute dyspnea Status: Acute (2) Multifocal pneumonia Status: Acute (3) Person under investigation for COVID-19 Status: Acute (4) Sepsis Status: Acute Acute respiratory failure with hypoxia - due to COVID 19 pneumonia and bilateral pneumonia Sepsis - Back painL2 compression fracture - chronic pain and weakness, with recent falls CAROL - vasomotor nephropathy from poor PO intake, acute sepsis syndrome Elevated bilirubin - malnutrition, and infection Mild protein calorie malnutrition Right lung mass on CT tobacco use disorder Plan He has completed most of the Covid protocol Remdesivir has been completed Respiratory isolation Home meds DVT prophylaxis Encourage p.o. intake O2 per nasal cannula PPN Lon Graham DNR Appreciate subspecialist input We would like to get him to halfway but they will not accept him since he had COVID-19. We will have to get him strong enough to go home from here might take a few more days? I will call his family to discuss possible hospice? Comment Review of Relevant I have reviewed the following items kaylah (where applicable) has been applied. Justifications for Admission Other Justification ELMER VELA III, DO Nov 12, 2020 11:41
--- NOTE | 2020-11-12 12:52 | NUR ---
SW following. Discussed with RN, pt from home alone, 2L, COVID-[address] Potter spoke with pt's son, Tay about hospice. Family are going to discuss. Tay reported to Dr. Potter they had their mom on hospice with [facility] and did not like that company. SW will continue to follow.
[2020-11-12 15:04] VITALS: BP 93/50
[2020-11-12] MEDS: ENOXAPARIN 40 MG/0.4 ML SYRINGE. SQ SCH (16:04)
[2020-11-12 19:55] VITALS: BP 94/49
[2020-11-12] MEDS: MIRTAZAPINE 7.5 MG TABLET. PO SCH (19:57)
[2020-11-12] MEDS: PATCH REMOVAL. MC SCH (20:11)
[2020-11-12 23:21] VITALS: BP 113/46
[2020-11-13 03:04] VITALS: BP 128/59
[2020-11-13 07:45] VITALS: BP 119/42
[2020-11-13] MEDS: FLUTICASONE 50MCG/NASAL SPRAY 16GM BOTTLE. NS SCH (09:00)
[2020-11-13] MEDS: LIDOCAINE (700MG/PATCH) PATCH. TD SCH ×2 (09:00→09:40)
[2020-11-13] MEDS: LACTOBACILLUS RHAMNOSUS GG 1 CAPSULE. PO SCH ×2 (09:40→20:21)
[2020-11-13] MEDS: ZINC SULFATE 220 MG CAPSULE. PO SCH (09:40)
[2020-11-13] MEDS: DEXAMETHASONE SOD PHOS 4 MG/ML VIAL IVP SCH (09:40)
[2020-11-13] MEDS: THIAMINE 100 MG TABLET. PO SCH (09:40)
--- NOTE | 2020-11-13 10:13 | PDOC ---
PULMONARY PROGRESS NOTES DATE: 11/13/20 TIME: 10:12 Subjective Remains on 3 liters NC oxygen SOB with exertion ongoing poor po intake,remains very weak afebrile Vitals Vital Signs Date Time Temp Pulse Resp B/P (MAP) Pulse Ox O2 Delivery O2 Flow Rate FiO2 11/13/20 07:45 97.1 95 18 119/42 (67) 97 Nasal Cannula 3.0 97.1 ROS: No Nausea, No Chest Pain, No Abdominal Pain, No Increase Cough General: Alert, Oriented X4 Lungs: Crackles Cardiovascular: S1, S2 Abdomen: Soft, Non-tender Neuro Exam: Alert Extremities: No Edema Skin: Warm, Dry Impression . IMPRESSION: 1. Acute hypoxemic respiratory failure, multifactorial. COVID-19 viral pneumonia. 2. Possible bacterial pneumonia. 3. Sepsis secondary to above. 4. Back pain. 5. Acute kidney injury. 6. Severe protein malnutrition, present upon admission. 7. Abnormal CT chest. Right lower lobe lobulated nodule appears to be concerning for cancer, left lower lobe infiltrate is more than likely related to COVID-19. Plan . PLAN: Continue supplemental oxygen CT reviewed Follow in office with CT in 4-6 weeks Off ABX S/P remdesivir Completed full 10 day course of Dexamethasone Continue PPN for nutritional support Social work for DC planning --- possible DC to SNU DVT/GI PPX D/W RN Pt. is DNR ERIS BARILLAS MD Nov 13, 2020 10:13
[2020-11-13 11:00] VITALS: BP 94/61
[2020-11-13] MEDS: AMINO AC 3%/ELECTROLYTE/GLYCER 1,000 ML IV SCH ×2 (12:16→23:45)
--- NOTE | 2020-11-13 13:36 | NUR ---
SW following. Discussed with RN, SW spoke with pt's son, Tay about hospice after conversation with Dr. Potter. Family would like this, providers offered, Tay would like to go with [facility]. Referral faxed to [facility], awaiting acceptance decision. SASHA will continue to follow.
--- NOTE | 2020-11-13 13:56 | PDOC ---
[employer] PROGRESS NOTE Date of Service DOS: DATE: 11/13/20 TIME: 13:55 Chief Complaint Chief Complaint Resolving COVID-19 infection Acute respiratory failure with hypoxia - due to COVID 19 pneumonia and bilateral pneumonia Sepsis - IVF + antibiotics, though this is COVID 19 related. 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 tobacco use disorder History of Present Illness History of Present Illness 11/12/2020 Patient seen and examined He is extremely weak and still short of breath On O2 per nasal cannula Discussed with RN Discussed with case management Chart reviewed 11/11/2020 Patient seen and examined Clinically about the same as yesterday Little short of breath Little confused Chart reviewed Discussed with RN 11/10/2020 Patient seen and examined Discussed with RN Chart reviewed He completed day 5 of remdesivir yesterday We are now waiting for him to get strong enough to go home as he cannot go to retirement due to Covid 11/09/2020 Patient seen and examined He is on day 5 of remdesivir Discussed with RN Discussed with case management Chart reviewed We would like to get him to retirement but nobody will take Covid positive patients at this time 11/09/2019 Patient seen and examined Discussed with RN Chart reviewed Discussed with RN He is remains quite ill 11/07/2020 Patient seen and examined He is in bed eating breakfast Has O2 per nasal cannula On day 3 of remdesivir Discussed with RN Discussed with case management Chart reviewed 11/06/2020 Patient seen and examined Discussed with RN Chart reviewed Discussed with case management Patient is up on the commode (just sneezed has a lot of secretions I handed him a box of tissues) breathing OK notable weakness and poor PO intake still hypoxia, Vitals/I&O Vitals/I&O: Vital Signs Date Time Temp Pulse Resp B/P (MAP) Pulse Ox O2 Delivery O2 Flow Rate FiO2 11/13/20 11:00 97.2 80 18 94/61 (72) 97 Nasal Cannula 3.0 97.2 I & O 11/12/20 11/12/20 11/13/20 15:00 23:00 07:00 Intake Total 1095 ml 1120 ml Output Total 175 ml Balance 1095 ml 945 ml Physical Exam General: Cooperative, mild distress, Other (Cachectic appearing) Heart: Other (Tachycardic) Lungs: Crackles Abdomen: Normal bowel sounds, Soft, No tenderness, No hepatosplenomegaly, No masses Extremities: No clubbing, No cyanosis, No edema, Normal pulses, No tenderness/swelling Skin: No rashes, No breakdown, No significant lesion Assessment and Plan Assessmemt and Plan Problems Medical Problems: (1) Acute dyspnea Status: Acute (2) Multifocal pneumonia Status: Acute (3) Person under investigation for COVID-19 Status: Acute (4) Sepsis Status: Acute Comment Review of Relevant I have reviewed the following items kaylah (where applicable) has been applied. Justifications for Admission Other Justification GABIREL AVILES MD Nov 13, 2020 13:56
[2020-11-13 15:55] VITALS: BP 113/50
[2020-11-13] MEDS: ENOXAPARIN 40 MG/0.4 ML SYRINGE. SQ SCH (16:15)
[2020-11-13 19:00] VITALS: BP 106/57
[2020-11-13] MEDS: MIRTAZAPINE 7.5 MG TABLET. PO SCH (20:20)
[2020-11-13] MEDS: PATCH REMOVAL. MC SCH (20:21)
[2020-11-13 23:08] VITALS: BP 111/53
[2020-11-14 03:00] VITALS: BP 123/65
[2020-11-14 07:00] VITALS: BP 113/49
[2020-11-14] MEDS: LIDOCAINE (700MG/PATCH) PATCH. TD SCH (09:12)
[2020-11-14] MEDS: LACTOBACILLUS RHAMNOSUS GG 1 CAPSULE. PO SCH (09:12)
[2020-11-14] MEDS: ZINC SULFATE 220 MG CAPSULE. PO SCH (09:12)
[2020-11-14] MEDS: THIAMINE 100 MG TABLET. PO SCH (09:12)
[2020-11-14] MEDS: FLUTICASONE 50MCG/NASAL SPRAY 16GM BOTTLE. NS SCH (09:12)
[2020-11-14] MEDS: AMINO AC 3%/ELECTROLYTE/GLYCER 1,000 ML IV SCH (09:13)
--- NOTE | 2020-11-14 09:52 | PDOC ---
PULMONARY PROGRESS NOTES DATE: 11/14/20 TIME: 09:52 Subjective Remains on 3 liters NC oxygen afebrile no overnight concerns planned to DC with hospice today Vitals Vital Signs Date Time Temp Pulse Resp B/P (MAP) Pulse Ox O2 Delivery O2 Flow Rate FiO2 11/14/20 07:00 98.1 85 18 113/49 (70) 98 Nasal Cannula 3.0 98.1 ROS: No Nausea, No Chest Pain, No Abdominal Pain, No Increase Cough General: Alert Lungs: Crackles Cardiovascular: S1, S2 Abdomen: Soft, Non-tender Neuro Exam: Alert Extremities: No Edema Skin: Warm, Dry Impression . IMPRESSION: 1. Acute hypoxemic respiratory failure, multifactorial. COVID-19 viral pneumonia. 2. Possible bacterial pneumonia. 3. Sepsis secondary to above. 4. Back pain. 5. Acute kidney injury. 6. Severe protein malnutrition, present upon admission. 7. Abnormal CT chest. Right lower lobe lobulated nodule appears to be concerning for cancer, left lower lobe infiltrate is more than likely related to COVID-19. Plan . PLAN: Continue supplemental oxygen currently on [address] reviewed Follow in office with CT in 4-6 weeks -- no longer needed since discharging on hospice S/P remdesivir Completed full 10 day course of Dexamethasone Continue PPN for nutritional support Social work for DC planning ---DC with [facility] today, agree with discharge DVT/GI PPX D/W RN Pt. is DNR ERIS BARILLAS MD Nov 14, 2020 09:52
[2020-11-14 11:00] VITALS: BP 120/52
--- NOTE | 2020-11-14 11:15 | NUR ---
SW following. Discussed with RN, Heather Gustafson stating pt can be off isolation after 10 days tomorrow (11/15/20). SW having RN double check as pt was tested for COVID on 11/04/20. Hospice waiting to speak with family and patient together. SASHA will continue to follow. Addendum: 11/14/20 at 1448 by MARYLU BAEZ Pt cleared to come off isolation today. Hospice meeting with pt and family in the room. Addendum: 11/14/20 at 1537 by MARYLU BAEZ Pt discharging home with [facility] today. Perla has discharge orders, RN aware, family transporting patient home.
--- NOTE | 2020-11-14 12:35 | PDOC ---
[employer] PROGRESS NOTE Date of Service DOS: DATE: 11/14/20 TIME: 12:35 Chief Complaint Chief Complaint Resolving COVID-19 infection Acute respiratory failure with hypoxia - due to COVID 19 pneumonia and bilateral pneumonia Sepsis - IVF + antibiotics, though this is COVID 19 related. 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 tobacco use disorder History of Present Illness History of Present Illness 11/14. family wants DC home with hospice care, may still improve, post covid 11/12/2020 Patient seen and examined He is extremely weak and still short of breath On O2 per nasal cannula Discussed with RN Discussed with case management Chart reviewed 11/11/2020 Patient seen and examined Clinically about the same as yesterday Little short of breath Little confused Chart reviewed Discussed with RN 11/10/2020 Patient seen and examined Discussed with RN Chart reviewed He completed day 5 of remdesivir yesterday We are now waiting for him to get strong enough to go home as he cannot go to jail due to Covid 11/09/2020 Patient seen and examined He is on day 5 of remdesivir Discussed with RN Discussed with case management Chart reviewed We would like to get him to jail but nobody will take Covid positive patients at this time 11/09/2019 Patient seen and examined Discussed with RN Chart reviewed Discussed with RN He is remains quite ill 11/07/2020 Patient seen and examined He is in bed eating breakfast Has O2 per nasal cannula On day 3 of remdesivir Discussed with RN Discussed with case management Chart reviewed 11/06/2020 Patient seen and examined Discussed with RN Chart reviewed Discussed with case management Patient is up on the commode (just sneezed has a lot of secretions I handed him a box of tissues) breathing OK notable weakness and poor PO intake still hypoxia, Vitals/I&O Vitals/I&O: Vital Signs Date Time Temp Pulse Resp B/P (MAP) Pulse Ox O2 Delivery O2 Flow Rate FiO2 11/14/20 11:00 98.1 97 18 120/52 (74) 97 Nasal Cannula 3.0 98.1 I & O 11/13/20 11/13/20 11/14/20 15:00 23:00 07:00 Intake Total 1100 ml Output Total 1 ml Balance 1099 ml Physical Exam General: Cooperative, mild distress, Other (Cachectic appearing) Heart: Other (Tachycardic) Lungs: Crackles Abdomen: Normal bowel sounds, Soft, No tenderness, No hepatosplenomegaly, No masses Extremities: No clubbing, No cyanosis, No edema, Normal pulses, No tenderness/swelling Skin: No rashes, No breakdown, No significant lesion Assessment and Plan Assessmemt and Plan Problems Medical Problems: (1) Acute dyspnea Status: Acute (2) Multifocal pneumonia Status: Acute (3) Person under investigation for COVID-19 Status: Acute (4) Sepsis Status: Acute Comment Review of Relevant I have reviewed the following items kaylah (where applicable) has been applied. Justifications for Admission Other Justification GABRIEL AVILES MD Nov 14, 2020 12:35
[2020-11-14] MEDS ORDERED: MIRT7.5T8 PO (12:38)
[2020-11-14] MEDS ORDERED: LORA0.5T96 PO (12:38)
[2020-11-14] MEDS ORDERED: OXYC1TAB15 PO (12:38)
--- NOTE | 2020-11-14 12:39 | SNU/HH DC ---
DISCHARGE ORDERS DISCHARGE INFORMATION: DISCHARGE DATE: Nov 14, 2020 FINAL DIAGNOSIS COVID 19 multifocal pneumonia sepsis weakness dementia Problems Medical Problems: (1) Acute dyspnea Status: Acute (2) Multifocal pneumonia Status: Acute (3) Person under investigation for COVID-19 Status: Acute (4) Sepsis Status: Acute CODE STATUS: Code Status: DNR/DNI HOSPICE: HOSPICE: Yes HOSPICE EVAL & TREAT: Yes POST DISCHARGE ORDERS: ACTIVITY ORDERS: No restrictions WEIGHT BEARING STATUS: No restrictions DISCHARGE MEDICATIONS: Home Meds Active Scripts Lorazepam (ATIVAN) 0.5 Mg Tablet, 0.5 MG PO BID PRN for ANXIETY, #30 TAB Prov:GABRIEL AVILES MD 11/14/20 Oxycodone/Apap 5-325 (PERCOCET 5-325 MG TABLET ) 1 Each Tablet, 1 TAB PO QIDPRN PRN for PAIN MDD 4 Tablet(s), #35 TAB 0 Refills Prov:GABRIEL AVILES MD 11/14/20 Mirtazapine (MIRTAZAPINE) 7.5 Mg Tablet, 7.5 MG PO QHS for sleep, #30 TAB Prov:GABRIEL AVILES MD 11/14/20 GABRIEL AVILES MD Nov 14, 2020 12:39
[2020-11-14] MEDS: ENOXAPARIN 40 MG/0.4 ML SYRINGE. SQ SCH (16:00)
--- NOTE | 2020-11-14 19:00 | NUR ---
Patient discharged home with Hospice. See chart for copies of prescriptions. Oxygen was delivered to home, family brought portable O2 for transfer home. Patient appears in good spirits at this time. Belongings in room taken with patient.
== END 2020-11-14 19:00 | disposition hospice, home (50) | DRG 871 ==
LOC: ER 08:04 → 6 SOUTH 13:14
PROVIDERS: ADMIT Internal Medicine; ATTEND Internal Medicine
PROC: XW033E5 Introduction of Remdesivir Anti-infective into Peripheral Vein, Percutaneous Approach, New Technology Group 5 (ICD-10-PCS; principal; 2020-11-04)
DX: A41.89 Other specified sepsis (principal); U07.1 COVID-19; J12.82 Pneumonia due to coronavirus disease 2019; J96.01 Acute respiratory failure with hypoxia; E43 Unspecified severe protein-calorie malnutrition; N17.0 Acute kidney failure with tubular necrosis; M48.56XA Collapsed vertebra, not elsewhere classified, lumbar region, initial encounter for fracture; F17.210 Nicotine dependence, cigarettes, uncomplicated; G89.29 Other chronic pain; I45.10 Unspecified right bundle-branch block; J43.9 Emphysema, unspecified; M47.9 Spondylosis, unspecified; M48.00 Spinal stenosis, site unspecified; Z51.5 Encounter for palliative care; Z66 Do not resuscitate
CPT/HCPCS: 36415; 70450; 71045; 71275; 72125; 80048; 80053; 80076; 80202; 81001; 82550; 83605; 83880; 84484; 85007; 85025; 87040; 87426; 93005; 96361; 96365; 96366; 96368; J1100; J1650; J2543; J3370; J3490; J7030; J7040; J7050; Q9967; U0003; U0005; 97110-GP; 97116-GP; 97530-GO; 97530-GP; 97535-GO; 99285-25; G0378

== ENCOUNTER 2021-02-15 11:30 | Inpatient (IN) | payer OTHER ==
[~2021-02-15 11:30] MED LIST: LORA0.5T96 PO; MIRT7.5T8 PO; OXYC1TAB15 PO
--- NOTE | 2021-02-15 11:40 | NUR ---
SW following. Discussed with RN, SW confirmed with [facility] ([facility]), pt is on inpatient hospice - the bill will be sent to [facility]. No SW needs at this time. SW will continue to follow.
[2021-02-15] MEDS ORDERED: ACETAMINOPHEN 650 MG SUPP.RECT. PR PRN (11:45)
[2021-02-15] MEDS ORDERED: BISACODYL 10 MG SUPP.RECT. PR PRN (11:45)
[2021-02-15] MEDS ORDERED: NALOXONE 0.4 MG/ML VIAL. IV PRN (11:45)
--- NOTE | 2021-02-15 11:53 | NUR ---
[facility] care per Dr Santos. Morning assessment/charting completed this AM in inpatient hospital chart. adult care provider/staff gave orders and they were placed in the system per Dr Santos. Morphine WASHING MACHINE LOADER infusing at this time at 4mg/hr. Family at bedside. Will continue to monitor.
[2021-02-15] MEDS: MORPHINE SULFATE 30 ML IV PRN (17:41)
[2021-02-15 21:00] VITALS: BP 109/49
[2021-02-16] MEDS: MORPHINE SULFATE 30 ML IV PRN ×4 (00:54→23:54)
[2021-02-16] MEDS: IV NORMAL SALINE 1000ML BAG 1,000 ML IV SCH ×2 (04:22→12:00)
[2021-02-16 09:00] VITALS: BP 104/49
--- NOTE | 2021-02-16 11:19 | HP ---
ADMIT DATE: 02/16/2021 HISTORY OF PRESENT ILLNESS: The patient is an 85-year-old male patient with a history of COPD, on oxygen at 2 liters, who presented to the Emergency Department for evaluation of right hip after falling. His daughter stated that he was walking from the bathroom with his walker and made turn, his walker slipped and he fell to the floor on his right hip. He did not hit his head on the ground. Denied any reason to have any loss of consciousness. He has 2 daughters that have been taking turns to stay with him for 24 hours and he was seen in the Emergency Room and he was already on hospice before and a decision was made to keep him comfortable as he was evaluated by the orthopedic surgeon who felt that given his advanced chronic obstructive pulmonary disease, he would not withstand to surgery and therefore, we admitted him to inpatient hospice. PAST MEDICAL HISTORY: Significant for chronic obstructive pulmonary disease. PAST SURGICAL HISTORY: Significant for tonsillectomy. ALLERGIES: He has no known drug allergies. FAMILY HISTORY: Noncontributory. SOCIAL HISTORY: He used to live alone. He has been an everyday smoker. He has 2 daughters that are very caring for him and they took turn to stay with him for 24 hours at a time. PHYSICAL EXAMINATION: GENERAL: When I saw him today, he was resting slightly propped up in bed, in no apparent respiratory distress. VITAL SIGNS: Heart rate was 120, blood pressure is 109/49, temperature was 98, respiratory rate was 18 and oxygen saturation was 92% on 2 liters of oxygen. HEAD, EYES, EARS, NOSE, AND THROAT: Normocephalic, atraumatic. NECK: Supple. HEART: Showed normal first and second heart sounds, no gallop or murmur. CHEST: Clear to auscultation, no crepitation or rhonchi. ABDOMEN: Scaphoid, soft, nontender. NEUROLOGIC: He seemed to be very comfortable, pain free. ASSESSMENT: 1. Fall with right subcapital impacted right femoral fracture. 2. Advanced oxygen dependent chronic obstructive pulmonary disease. PLAN: To continue with inpatient hospice care. He is on morphine drip as well as Ativan together with scopolamine and acetaminophen. ZACARIAS/CHAPIN DR: Dionicio TID: [id number]
--- NOTE | 2021-02-16 12:01 | NUR ---
Nurse's note: Non administered scheduled IVF at 1200, current bag still running.
[2021-02-16 21:06] VITALS: BP 106/44
--- NOTE | 2021-02-17 01:15 | NUR ---
PATIENT FOUND WITH NO RESPONSE TO VERBAL OR TACTILE STIMULI, NO BREATH SOUNDS,NO RESPIRATORY CHEST MOVEMENT OR APICAL HEARTBEAT FOR ONE MINUTE, NO GAG REFLEX AND NO PUPILLARY RESPONSE TO LIGHT. TWO RN PRONOUNCEMENT OF WITH KETAN CASILLAS RN.
--- NOTE | 2021-02-17 01:23 | NUR ---
DR. AVELAR NOTIFIED OF PATIENT .
--- NOTE | 2021-02-17 01:25 | NUR ---
[facility] NOTIFIED OF PATIENT , YOUNG STATED HE WOULD NOTIFY THE SALES SUPPORT TECHNICIAN COMMUTATOR OPERATOR.
--- NOTE | 2021-02-17 01:40 | NUR ---
[facility] NOTIFIED ABOUT PATIENT PASSING BY LEAH THOMAS RN.
--- NOTE | 2021-02-17 01:50 | NUR ---
FAMILY VALENCIA AMADOR NOTIFIED ABOUT PATIETN AND VALENCIA STATED SHE WOULD NOTIFY OTHER FAMILY MEMBERS AND PERFECT BINDER FEEDER OFFBEARER PATIENT CLOTHES IN AM.
--- NOTE | 2021-02-17 02:00 | NUR ---
WEN WHYTE RNSOLAR INSTALLER TECHNICIAN NOTIFIED OF PATIENT .
--- NOTE | 2021-02-17 02:31 | NUR ---
SECOND CALL TO [facility] AND BRENT STATED HE WOULD NOTIFY CUSTOMER ENGINEERING SPECIALIST PIPE TESTING TECHNICIAN.
--- NOTE | 2021-02-17 02:50 | NUR ---
CALL RECEIVED FROM SIMI BABB WITH [facility] AND SHE STATED THAT TUG MASTER RN WOULD BE COMING TO HOSPITAL TO SEE PATIENT.
--- NOTE | 2021-02-17 03:56 | NUR ---
ANANYA WITH [facility] STATED HE WILL CONTACT THE HOME AND WOULD CALL BACK WITH THE ETA OF HIM GETTING HERE.
--- NOTE | 2021-02-17 04:00 | NUR ---
ANANYA FROM [facility] CALLED AND SPOKE WITH WEN WHYTE RN HISTORIAN RESEARCH ASSISTANT AND STATED [facility] [phone] WOULD BE HERE IN AM TO INTELLIGENCE MANAGER PATIENT. ANANYA FROM [facility] STATED HE WOULD NOT BE COMING TO SEE PATIENT.
--- NOTE | 2021-02-17 05:46 | NUR ---
PATIENT TO ANTONELLAE DENTURES AND CLOTHES LEFT IN BAG AT DESK FOR DAUGHTER VALENCIA AMADOR TO WHEEL TRUING MACHINE TENDER IN AM.
[2021-02-17] MEDS ORDERED: SCOPOLAMINE 1.5MG PATCH. TD SCH (09:00)
== END 2021-02-17 01:15 | DRG 536 ==
LOC: 5 SOUTH 11:30
PROVIDERS: ADMIT Internal Medicine; ATTEND Internal Medicine
DX: S72.011A Unspecified intracapsular fracture of right femur, initial encounter for closed fracture (principal); J44.9 Chronic obstructive pulmonary disease, unspecified; F17.200 Nicotine dependence, unspecified, uncomplicated; W01.0XXA Fall on same level from slipping, tripping and stumbling without subsequent striking against object, initial encounter; Y93.01 Activity, walking, marching and hiking; Z51.5 Encounter for palliative care; Z99.81 Dependence on supplemental oxygen; Y92.002 Bathroom of unspecified non-institutional (private) residence as the place of occurrence of the external cause; Y99.8 Other external cause status
CPT/HCPCS: J2270; J7030; G0378